=== PATIENT | male | born 1970 | race Caucasian/White ===

== ENCOUNTER 2019-01-25 14:09 | Emergency (ER) | payer OTHER ==
[~2019-01-25] VITALS: Ht 170.2 cm; Wt 79.4 kg
[~2019-01-25 14:09] MED LIST: ALBU90OI INH; AZIT250 PO; Amoxicillin500 MG PO; DEXA2 PO; DOCU100 PO; HYDACE5 PO; IBUP800 PO; PENVK500 PO; PRED20 PO; PROM25 PO; RXPENVK250 PO
[2019-01-25] MEDS ORDERED: CEPH500 PO (15:16)
== END 2019-01-25 15:25 | disposition home or self-care (01) ==
LOC: ER 14:09
DX: L03.115 Cellulitis of right lower limb (principal); B07.0 Plantar wart; Z87.891 Personal history of nicotine dependence
CPT/HCPCS: 99282

== ENCOUNTER → 2019-04-26 | Outpatient (CLI) | payer OTHER ==
[~2019-04-26] MED LIST changes: +CEPH500 PO
[2019-04-28 14:27] LABS: Stool Occult Bld Immuno 1 Negative (NEGATIVE)
== END | disposition home or self-care (01) ==
LOC: LAB 09:12 → LAB SHORT 09:12
PROVIDERS: Nurse Practitioner Family
DX: Z12.11 Encounter for screening for malignant neoplasm of colon (principal)
CPT/HCPCS: G0328

== ENCOUNTER → 2019-05-22 | Outpatient (CLI) | payer OTHER | END | disposition home or self-care (01) | LOC: LAB 16:04 → LAB SHORT 16:04 | DX: L02.611 Cutaneous abscess of right foot (principal) | CPT/HCPCS: 87070; 87075; 87077; 87186; 87205 ==

== ENCOUNTER 2020-12-27 18:55 | Emergency (ER) | payer OTHER ==
[~2020-12-27] VITALS: Ht 172.7 cm; Wt 86.2 kg
[~2020-12-27 18:55] MED LIST changes: +ATOR80 PO; +CARV6.25 PO; +CYCL10; +NAPR500 PO; +Zantac150 MG
== END 2020-12-27 21:08 | disposition home or self-care (01) ==
LOC: ER 18:55
DX: S61.211A Laceration without foreign body of left index finger without damage to nail, initial encounter (principal); S61.217A Laceration without foreign body of left little finger without damage to nail, initial encounter; S61.213A Laceration without foreign body of left middle finger without damage to nail, initial encounter; S61.215A Laceration without foreign body of left ring finger without damage to nail, initial encounter; Z23 Encounter for immunization; Z79.899 Other long term (current) drug therapy; Z87.891 Personal history of nicotine dependence; W45.8XXA Other foreign body or object entering through skin, initial encounter
CPT/HCPCS: 12001; 90471; 90714; 99282-25; A9270

== ENCOUNTER 2022-04-23 12:14 | Emergency (ER) | payer OTHER ==
[~2022-04-23] VITALS: Ht 170.2 cm; Wt 83.9 kg
[2022-04-23 13:09] LABS: BASOPHILS ABSOLUTE AUTO 0.03 K/mm3 (0.00-0.23); BASOPHILS PERCENT AUTO 0 % (0-2); EOSINOPHILS ABSOLUTE AUTO 0.01 K/mm3 (0.00-0.68); EOSINOPHILS PERCENT AUTO 0 % (0-6); Hematocrit 41.8 % (37.0-53.0); Hemoglobin 13.4 g/dL (13.5-17.5); IMMATURE GRAN ABSOLUTE AUTO 0.04 K/mm3 (0.00-0.10); IMMATURE GRAN PERCENT AUTO 0 % (0-1); LYMPHOCYTES ABSOLUTE AUTO 1.22 K/mm3 (0.84-5.20); LYMPHOCYTES PERCENT AUTO 13 % (21-46); MONOCYTES ABSOLUTE AUTO 0.81 K/mm3 (0.16-1.47); MONOCYTES PERCENT AUTO 8 % (4-13); Mean Corpuscular HGB 29.1 pg (26.0-34.0); Mean Corpuscular HGB Conc 32.1 g/dL (31.5-36.5); Mean Corpuscular Volume 91 fL (80-100); Mean Platelet Volume 11.4 fL (9.1-12.4); NEUTROPHILS ABSOLUTE AUTO 7.67 K/mm3 (1.96-9.15); NEUTROPHILS PERCENT AUTO 78 % (41-73); Platelet Count 216 K/mm3 (150-400); RDW Coefficient Variation 14.4 % (11.7-14.2); RDW Standard Deviation 47.9 fL (35.1-46.3); White Blood Cell Count 9.78 K/mm3 (4.00-11.30)
[2022-04-23 13:37] LABS: Albumin, Blood 3.1 g/dL (3.4-5.0); Albumin/Globulin Ratio 0.7 (0.8-1.8); Bilirubin, Total 0.4 mg/dL (0.1-1.0); Bun/Creatinine Ratio 14.3 (12.0-20.0); Creatinine, Blood 0.98 mg/dL (0.60-1.20); Globulin, Blood 4.2 g/dL (2.2-4.0); Potassium, Blood 4.1 mmol/L (3.5-5.5); Total Protein, Blood 7.3 g/dL (6.4-8.2)
== END 2022-04-23 16:47 | disposition home or self-care (01) ==
LOC: ER 12:14
PROVIDERS: Emergency Medicine
DX: S91.301A Unspecified open wound, right foot, initial encounter (principal); X58.XXXA Exposure to other specified factors, initial encounter
CPT/HCPCS: 36415; 73630; 80053; 85025; 99283-25

== ENCOUNTER 2023-06-17 20:58 | Observation (INO) | payer OTHER ==
[~2023-06-17] VITALS: Ht 172.7 cm; Wt 75.0 kg
[2023-06-18 01:49] VITALS: BP 163/97
--- NOTE | 2023-06-18 02:27 | NUR ---
PT ARRIVED TO ROOM 210 FROM ER. PT A/O X4, VSS. LLE IN IMMOBILIZER, LEG PINK/WARM, PEDAL PULSES STRONG, CAP REFILL WNL, PT DENIES N/T. PT MEDICATED FOR PAIN PER EMAR, IVF STARTED, PT ORIENTED TO ROOM/CALL LIGHT AND NPO STATUS.
[2023-06-18 04:10] VITALS: BP 162/99
[2023-06-18 05:30] LABS: BASOPHILS ABSOLUTE AUTO 0.04 K/mm3 (0.00-0.23); BASOPHILS PERCENT AUTO 0 % (0-2); EOSINOPHILS ABSOLUTE AUTO 0.06 K/mm3 (0.00-0.68); EOSINOPHILS PERCENT AUTO 1 % (0-6); Hematocrit 40.1 % (37.0-53.0); IMMATURE GRAN ABSOLUTE AUTO 0.02 K/mm3 (0.00-0.10); IMMATURE GRAN PERCENT AUTO 0 % (0-1); LYMPHOCYTES ABSOLUTE AUTO 1.81 K/mm3 (0.84-5.20); LYMPHOCYTES PERCENT AUTO 19 % (21-46); MONOCYTES PERCENT AUTO 10 % (4-13); Mean Corpuscular HGB Conc 32.4 g/dL (31.5-36.5); Mean Corpuscular Volume 92 fL (80-100); Mean Platelet Volume 11.1 fL (9.1-12.4); NEUTROPHILS ABSOLUTE AUTO 6.71 K/mm3 (1.96-9.15); NEUTROPHILS PERCENT AUTO 70 % (41-73); Platelet Count 206 K/mm3 (150-400); RDW Coefficient Variation 12.9 % (11.7-14.2); RDW Standard Deviation 44.3 fL (35.1-46.3); Red Blood Cell Count 4.34 M/mm3 (4.30-5.90); White Blood Cell Count 9.64 K/mm3 (4.00-11.30)
[2023-06-18 05:56] LABS: International Normalized Ratio 1.01; Prothrombin Time Results 10.6 Sec (9.7-11.5)
[2023-06-18 06:06] LABS: Albumin, Blood 3.1 g/dL (3.4-5.0); Albumin/Globulin Ratio 0.8 (0.8-1.8); Bilirubin, Total 0.9 mg/dL (0.1-1.0); Bun/Creatinine Ratio 20.6 (12.0-20.0); Calcium, Blood 8.2 mg/dL (8.5-10.1); Creatinine, Blood 0.87 mg/dL (0.60-1.20); Globulin, Blood 3.7 g/dL (2.2-4.0); Magnesium, Blood 2.4 mg/dL (1.6-2.4); Potassium, Blood 3.7 mmol/L (3.5-5.5); Total Protein, Blood 6.8 g/dL (6.4-8.2)
[2023-06-18 07:33] VITALS: BP 167/102
--- NOTE | 2023-06-18 08:02 | NUR ---
PT VSS SINCE ARRIVING TO FLOOR, BP REMAINS ELEVATED, PT ASYMPTOMATIC. IMMOBILIZER IN PLACE TO LLE, PULSE AD CAP REFILL WNL, PT DENIES CHANGES IN SENSATION. PAIN MGD PER EMAR W/REP RELIEF. PT NPO SINCE ARRIVING TO FLOOR, IVF CONT. AWAITING SURGICAL PLANNING.
[2023-06-18 11:19] VITALS: BP 186/100
[2023-06-18] MEDS ORDERED: AMLODIPINE-BEN1 EAC4 PO (14:30)
[2023-06-18] MEDS ORDERED: OXAYDO5 M2 PO (14:30)
--- NOTE | 2023-06-18 15:11 | NUR ---
DISCHARGE PT LEFT VIA WHEELCHAIR. ALL BELONGINGS WITH PATIENT. PT PLANS TO FOLLOW UP WITH DR. ARGUELLES ONCE SWELLING GOES DOWN FOR POSSIBLE PROCEDURE. PT AGREEABLE. SCRIPTS SENT TO [facility]. IV REMOVED WNL. TOLERATING DIET WELL. CRUTCHES DROPPED OFF FOR PATIENT. THERAPY WORKED WITH PATIENT ON PROPER USE.
== END 2023-06-18 15:09 | disposition home or self-care (01) ==
LOC: ER 20:58 → SURS 20:59
PROVIDERS: ADMIT Student in an Organized Health Care Education/Training Program
DX: S82.042A Displaced comminuted fracture of left patella, initial encounter for closed fracture (principal); W01.0XXA Fall on same level from slipping, tripping and stumbling without subsequent striking against object, initial encounter; I10 Essential (primary) hypertension; G89.29 Other chronic pain; M54.9 Dorsalgia, unspecified
CPT/HCPCS: 36415; 73564; 80053; 83735; 85025; 85610; 96374; 96375; 97116; 97162; 97530; 99285-25; A9270; G0378; J0360; J3010; J7120

== ENCOUNTER 2023-07-03 08:08 | Inpatient (IN) | payer OTHER ==
[~2023-07-03] VITALS: Ht 170.2 cm; Wt 84.0 kg
[2023-07-03] VITALS (30 sets, daily range): BP systolic 128–184; BP diastolic 83–114
[~2023-07-03 08:08] MED LIST changes: +AMLODIPINE-BEN1 EAC4 PO; +OXAYDO5 M2 PO
--- NOTE | 2023-07-03 14:00 | NUR ---
DR RIBERA CALLED REGARDING PT PAIN, WOULD LIKE ME TO ADMINISTER MORPHINE FOR PAIN CONTROL UNTIL MAX DOSE REACHED, IF STILL UNCONTROLLED I WILL CALL HIM FOR FURTHER ORDERS
--- NOTE | 2023-07-03 14:30 | NUR ---
DR ARGUELLES UPDATED ON PT PAIN, WOULD LIKE TO ADMIT PT OVERNIGHT
--- NOTE | 2023-07-03 17:23 | NUR ---
SHIFT SUMMARY/POST OP NOTE: PATIENT IS A&OX4. SBP IS ELEVATED BUT HAS BEEN GIVEN PO PROPRANOLOL AND COZAAR. PATIENT REPORTS 7/10 PAIN FROM HIS LEFT KNEE. HE HAS BEEN GIVEN HIS EMAR PAIN MEDS AT THIS TIME. HIS LEFT KNEE HAS AN LANI WRAP AND IMMOBILIZER IN PLACE THAT IS C/D/I. DENIES NUMBNESS AND TINGLING IN ALL EXTREMITIES. HE IS ABLE TO MOVE ALL FINGERS AND TOES. PATIENT IS CURRENTLY LAYING IN BED WITH CALL LIGHT IN REACH. THE PLAN IS TO CONTINUE HTN AND PAIN MANAGEMENT WELL WORK WITH PHYSICAL THERAPY IN THE MORNING.
[2023-07-03 17:52] LABS: Hematocrit 38.9 % (37.0-53.0); Hemoglobin 12.7 g/dL (13.5-17.5); Mean Corpuscular HGB 30.3 pg (26.0-34.0); Mean Corpuscular HGB Conc 32.6 g/dL (31.5-36.5); Mean Corpuscular Volume 93 fL (80-100); Platelet Count 344 K/mm3 (150-400); RDW Coefficient Variation 13.7 % (11.7-14.2); RDW Standard Deviation 45.8 fL (35.1-46.3); Red Blood Cell Count 4.19 M/mm3 (4.30-5.90); White Blood Cell Count 12.08 K/mm3 (4.00-11.30)
[2023-07-03 18:14] LABS: BASOPHILS ABSOLUTE MAN 0.12 K/mm3 (0.00-0.23); BASOPHILS PERCENT MAN 1 % (0-2); Bun/Creatinine Ratio 21.8 (12.0-20.0); Calcium, Blood 9.1 mg/dL (8.5-10.1); Creatinine, Blood 1.01 mg/dL (0.60-1.20); EOSINOPHILS PERCENT MAN 0 % (0-6); LYMPHOCYTES ABSOLUTE MAN 0.72 K/mm3 (0.84-5.20); LYMPHOCYTES PERCENT MAN 6 % (21-46); MONOCYTES ABSOLUTE MAN 0.12 K/mm3 (0.16-1.47); MONOCYTES PERCENT MAN 1 % (4-13); NEUTROPHILS ABSOLUTE MAN 11.11 K/mm3 (1.96-9.15); Potassium, Blood 4.6 mmol/L (3.5-5.5); SEG NEUTROPHILS PERCENT MAN 92 % (41-73); TOTAL CELLS COUNTED 100
[2023-07-04 04:14] VITALS: BP 164/102
[2023-07-04 04:54] LABS: BASOPHILS ABSOLUTE AUTO 0.03 K/mm3 (0.00-0.23); BASOPHILS PERCENT AUTO 0 % (0-2); EOSINOPHILS ABSOLUTE AUTO 0.02 K/mm3 (0.00-0.68); EOSINOPHILS PERCENT AUTO 0 % (0-6); Hematocrit 37.5 % (37.0-53.0); Hemoglobin 12.1 g/dL (13.5-17.5); IMMATURE GRAN ABSOLUTE AUTO 0.04 K/mm3 (0.00-0.10); IMMATURE GRAN PERCENT AUTO 0 % (0-1); LYMPHOCYTES ABSOLUTE AUTO 1.67 K/mm3 (0.84-5.20); LYMPHOCYTES PERCENT AUTO 11 % (21-46); MONOCYTES ABSOLUTE AUTO 1.17 K/mm3 (0.16-1.47); MONOCYTES PERCENT AUTO 8 % (4-13); Mean Corpuscular HGB 29.7 pg (26.0-34.0); Mean Corpuscular HGB Conc 32.3 g/dL (31.5-36.5); Mean Corpuscular Volume 92 fL (80-100); Mean Platelet Volume 10.1 fL (9.1-12.4); NEUTROPHILS ABSOLUTE AUTO 11.69 K/mm3 (1.96-9.15); NEUTROPHILS PERCENT AUTO 80 % (41-73); Platelet Count 350 K/mm3 (150-400); RDW Coefficient Variation 13.7 % (11.7-14.2); RDW Standard Deviation 45.4 fL (35.1-46.3); Red Blood Cell Count 4.08 M/mm3 (4.30-5.90); White Blood Cell Count 14.62 K/mm3 (4.00-11.30)
--- NOTE | 2023-07-04 06:17 | NUR ---
HYPERTENSIVE PT HAS BEEN HYPERTENSIVE THIS SHIFT, AND PREVIOUS SHIFT. DR. SMITH NOTIFIED. RECEIVED ORDER TO GIVE 0730 DOSE OF PROPANOLOL EARLY. HE STATES TO GO AHEAD AND GIVE 0730 NOW.
[2023-07-04 07:02] VITALS: BP 158/98
[2023-07-04 14:59] VITALS: BP 144/86
[2023-07-04] MEDS ORDERED: DOCU100 PO (17:38)
[2023-07-04] MEDS ORDERED: CODACE30 PO (17:39)
[2023-07-04] MEDS ORDERED: IBUP600 PO (17:39)
[2023-07-04] MEDS ORDERED: LOSA50 PO (17:40)
[2023-07-04] MEDS ORDERED: PROP10 PO (17:41)
[2023-07-04 17:58] VITALS: BP 144/85
[2023-07-04] MEDS ORDERED: ASPI325 PO (18:36)
--- NOTE | 2023-07-04 18:45 | NUR ---
DISCHARGE PT PROVIDED WITH WRITTEN AND VERBAL DISCHARGE INSTRUCTIONS; PT REPORTED UNDERSTANDING. PAIN MANAGED AT TIME OF DISCHARGE. VSS. PT PROVIDED WITH SCRIPTS FOR PAIN MEDICATION AND OTHER PRESCRIPTIONS FAXED TO PT'S PHARMACY. PT ASSISTED OUT IN W/C AT 1844.
== END 2023-07-04 18:44 | disposition home or self-care (01) | DRG 517 ==
LOC: ORSCMMR 08:08 → ORD 08:08 → ORSCMMR 08:13 → SURS 15:07 → ORD 15:08 → SURS 15:12 → MEDS 15:12 → SURS 15:19
PROVIDERS: ADMIT Orthopaedic Surgery
PROC: 0QSF04Z Reposition Left Patella with Internal Fixation Device, Open Approach (ICD-10-PCS; principal; 2023-07-03 11:30)
DX: S82.032A Displaced transverse fracture of left patella, initial encounter for closed fracture (principal); W01.0XXA Fall on same level from slipping, tripping and stumbling without subsequent striking against object, initial encounter; M54.50 Low back pain, unspecified; I10 Essential (primary) hypertension; G89.29 Other chronic pain; Z79.899 Other long term (current) drug therapy; F15.11 Other stimulant abuse, in remission; Z87.891 Personal history of nicotine dependence; Z98.890 Other specified postprocedural states
CPT/HCPCS: 36415; 80048; 85007; 85025; 85027; 93005; 93010; 97116; 97162; A9270; C1713; C1769; J0690; J1100; J1650; J1885; J2250; J2270; J2405; J2704; J3010; J7120

== ENCOUNTER 2023-07-18 10:06 | Inpatient (IN) | payer OTHER ==
[~2023-07-18] VITALS: Ht 170.2 cm; Wt 79.5 kg
[2023-07-18] VITALS (12 sets, daily range): BP systolic 146–174; BP diastolic 77–98
[~2023-07-18 10:06] MED LIST changes: +ASPI325 PO; +CODACE30 PO; +IBUP600 PO; +LOSA50 PO; +PROP10 PO
[2023-07-18 10:50] LABS: BASOPHILS ABSOLUTE AUTO 0.04 K/mm3 (0.00-0.23); BASOPHILS PERCENT AUTO 0 % (0-2); EOSINOPHILS ABSOLUTE AUTO 0.03 K/mm3 (0.00-0.68); EOSINOPHILS PERCENT AUTO 0 % (0-6); Hematocrit 34.6 % (37.0-53.0); Hemoglobin 11.2 g/dL (13.5-17.5); IMMATURE GRAN ABSOLUTE AUTO 0.11 K/mm3 (0.00-0.10); IMMATURE GRAN PERCENT AUTO 1 % (0-1); LYMPHOCYTES ABSOLUTE AUTO 0.93 K/mm3 (0.84-5.20); LYMPHOCYTES PERCENT AUTO 7 % (21-46); MONOCYTES ABSOLUTE AUTO 1.31 K/mm3 (0.16-1.47); MONOCYTES PERCENT AUTO 9 % (4-13); Mean Corpuscular HGB 28.9 pg (26.0-34.0); Mean Corpuscular HGB Conc 32.4 g/dL (31.5-36.5); Mean Corpuscular Volume 89 fL (80-100); NEUTROPHILS ABSOLUTE AUTO 11.45 K/mm3 (1.96-9.15); NEUTROPHILS PERCENT AUTO 83 % (41-73); Platelet Count 468 K/mm3 (150-400); RDW Coefficient Variation 14.6 % (11.7-14.2); Red Blood Cell Count 3.87 M/mm3 (4.30-5.90); White Blood Cell Count 13.87 K/mm3 (4.00-11.30)
[2023-07-18 11:18] LABS: Albumin, Blood 2.4 g/dL (3.4-5.0); Albumin/Globulin Ratio 0.4 (0.8-1.8); Bilirubin, Total 0.7 mg/dL (0.1-1.0); Bun/Creatinine Ratio 22.8 (12.0-20.0); Calcium, Blood 9.1 mg/dL (8.5-10.1); Creatinine, Blood 0.79 mg/dL (0.60-1.20); Globulin, Blood 5.9 g/dL (2.2-4.0); Potassium, Blood 4.2 mmol/L (3.5-5.5); Total Protein, Blood 8.3 g/dL (6.4-8.2)
--- NOTE | 2023-07-18 17:28 | NUR ---
ARRIVED FROM ED VIA VIDYA WORKMAN, C/O 04/30, MEDICATED W/ FENTANYL 50MCG IV PER EMAR, ICE TO L KNEE, DR. BOLANOS SAW PT, NOW TAKEN TO DAY SURGERY.
--- NOTE | 2023-07-18 17:44 | NUR ---
PT ARRIVES TO PACU FOR PRE-OP FROM RM 210 VIA BED AT 1720. SURGICAL PACK COMPLETE. DR VILLA AT BEDSIDE. AFEBRILE/VSS. PAS SLEEVE TO LLE PLACED. SURGICAL HAT & BP CUFF IN PLACED. NO ACUTE CHANGES AT TIME OF TRANSFER TO OR 2 FOR SURGERY.
[2023-07-19 02:16] VITALS: BP 143/85
[2023-07-19 05:19] LABS: BASOPHILS ABSOLUTE AUTO 0.01 K/mm3 (0.00-0.23); BASOPHILS PERCENT AUTO 0 % (0-2); EOSINOPHILS PERCENT AUTO 0 % (0-6); Hematocrit 31.4 % (37.0-53.0); Hemoglobin 10.3 g/dL (13.5-17.5); IMMATURE GRAN ABSOLUTE AUTO 0.08 K/mm3 (0.00-0.10); IMMATURE GRAN PERCENT AUTO 1 % (0-1); LYMPHOCYTES ABSOLUTE AUTO 0.64 K/mm3 (0.84-5.20); LYMPHOCYTES PERCENT AUTO 5 % (21-46); MONOCYTES ABSOLUTE AUTO 0.91 K/mm3 (0.16-1.47); MONOCYTES PERCENT AUTO 7 % (4-13); Mean Corpuscular HGB 28.9 pg (26.0-34.0); Mean Corpuscular HGB Conc 32.8 g/dL (31.5-36.5); Mean Corpuscular Volume 88 fL (80-100); Mean Platelet Volume 10.2 fL (9.1-12.4); NEUTROPHILS ABSOLUTE AUTO 12.12 K/mm3 (1.96-9.15); NEUTROPHILS PERCENT AUTO 88 % (41-73); Platelet Count 474 K/mm3 (150-400); RDW Coefficient Variation 14.8 % (11.7-14.2); Red Blood Cell Count 3.56 M/mm3 (4.30-5.90); White Blood Cell Count 13.76 K/mm3 (4.00-11.30)
[2023-07-19 05:54] LABS: Bun/Creatinine Ratio 24.6 (12.0-20.0); Calcium, Blood 8.9 mg/dL (8.5-10.1); Creatinine, Blood 0.81 mg/dL (0.60-1.20); Potassium, Blood 4.5 mmol/L (3.5-5.5)
--- NOTE | 2023-07-19 06:22 | NUR ---
SHIFT SUMMARY PT IS HERE FOR AN I&D PERFORMED ON 07/18 AFTER HAVING AN ORIF OF A LEFT PATELLAR FX ON 07/03/23. PT HAS A HEMOVAC IN PLACE W/MINIMAL OUTPUT. PACU REPORT STATED KNEE IS WRAPPED W/ XEROFORM, 4X4'S, AND AN LANI WRAP. PT'S VITAL SIGNS HAVE BEEN STABLE THROUGHOUT THE SHIFT AND THE PT HAS SLEPT FOR THE MAJORITY OF THE SHIFT. NO ACUTE EVENTS OCCURRED OVERNIGHT. BED IS IN LOWEST POSITION, CALL LIGHT IS WITHIN REACH.
[2023-07-19 07:27] VITALS: BP 155/86
--- NOTE | 2023-07-19 10:55 | NUR ---
Upon receiving a referral for spiritual care, I visited the patient. He is sleeping when I entered the but awakens at the sound of his name. He explains about the medical problems he has and the work that efforts made to deal with the infection. He welcomes prayer which I gladly supply. Patient voices appreciation and showed signs of reduced stress. I will continue to remain available to patient and family.
--- NOTE | 2023-07-19 10:59 | NUR ---
Upon receiveing a referral for spiritual care, I visited the patient. Patient tells me about his medical complications and his fears about the mass being "cancer." He is tearful as he talks about the desire to be around for his kids as they grow up. He describes his more recent spiritual connection and how he is in the beginningstages of trying to figure some things out. He asks theological questions to which I bring some fresh insights. He talks about his family and his recent move here from [place]. He shares his worries about the timing of the results from the biopsy and his need to have 3 hernias repaired. I normalize his fears and feelings, reinforce helpful attitudes and practices an provide therapeutic listening and prayer. Patient responded well and showed signs of reduced stress. I will continue to remain available to patient and family.
[2023-07-19 14:22] VITALS: BP 149/77
--- NOTE | 2023-07-19 15:23 | NUR ---
SHIFT SUMMARY: POD 1 LEFT KNEE I&D PATIENT IS A&OX4. VS ARE WNL AND IS ON RA. PAIN IS MANAGED WITH PO PERCOCET AND ONE DOSE OF IV DILAUDID FOR BREAKTHROUGH PAIN AFTER PHYSICAL THERAPY. PATIENTS LEFT KNEE HAS AN LANI WRAP WITH GAUZE THAT IS C/D/I. DENIES NUMBNESS OR TINGLING. CAN MOVE ALL FINGERS AND TOES WHEN ASKED. HE IS TOLERATING PO INTAKE AND IS VOIDING. PATIENT IS A SBA WITH FWW AND GAIT BELT AND IS WEIGHT BEARING TOLERATED ON THE LEFT KNEE. PATIENT IS CURRENTLY IN THE RECLINER CHAIR WITH LEGS ELEVATED AND CALL LIGHT WITHIN REACH. PATIENT CALLS APPROPRIATLEY. THE PLAN IS TO BE NPO AT MIDNIGHT TONIGHT FOR ANOTHER I&D WITH DR. BOLANOS IN THE MORNING TOMORROW AND TO ALSO CONTINUE PAIN MANAGEMENT.
[2023-07-19 20:01] VITALS: BP 162/94
[2023-07-19 20:02] VITALS: BP 157/88
[2023-07-20] VITALS (22 sets, daily range): BP systolic 141–188; BP diastolic 84–108
[2023-07-20 05:19] LABS: Hematocrit 31.3 % (37.0-53.0); Hemoglobin 10.1 g/dL (13.5-17.5); Mean Corpuscular HGB 28.9 pg (26.0-34.0); Mean Corpuscular HGB Conc 32.3 g/dL (31.5-36.5); Mean Corpuscular Volume 90 fL (80-100); Mean Platelet Volume 9.8 fL (9.1-12.4); Platelet Count 502 K/mm3 (150-400); RDW Coefficient Variation 15.2 % (11.7-14.2); RDW Standard Deviation 50.1 fL (35.1-46.3); Red Blood Cell Count 3.49 M/mm3 (4.30-5.90); White Blood Cell Count 11.24 K/mm3 (4.00-11.30)
[2023-07-20 05:58] LABS: Bun/Creatinine Ratio 27.4 (12.0-20.0); Calcium, Blood 8.5 mg/dL (8.5-10.1); Creatinine, Blood 0.88 mg/dL (0.60-1.20); Potassium, Blood 3.8 mmol/L (3.5-5.5)
--- NOTE | 2023-07-20 06:32 | NUR ---
SHIFT SUMMARY PT IS POD#2 FOR A LEFT KNEE I&D S/P AN ORIF OF A PATELLAR FX ON 07/03. HEMOVAC DRAIN IS COMPRESSED WITH MINIMAL OUTPUT. PT COMPLAINED OF PAIN THROUGHOUT THE NIGHT AND LOOSENED HIS BRACE D/T PAIN. PT'S PAIN MANAGED BY EMAR OVERNIGHT. PT HAS BEEN NPO SINCE MIDNIGHT FOR REPEAT I&D PROCEDURE TODAY. BED IS IN LOWEST POSITION, CALL LIGHT IS WITHIN REACH.
--- NOTE | 2023-07-20 08:52 | NUR ---
PATIENT WAS TAKEN TO THE OR.
--- NOTE | 2023-07-20 11:15 | NUR ---
PATIENT ARRIVED FROM PACU TODAY. POD 0 LEFT KNEE I&D PATIENT IS A&OX4. VS ARE WNL AND IS ON RA. PATIENT DENIES PAIN AT THIS TIME. HIS LEFT KNEE HAS AN LANI WRAP WITH IMMOBILIZER IN PLACE THAT IS C/D/I. PEDAL PULSES ARE STRONG AND WARM TO TOUCH. HE IS ABLE TO WIGGLE ALL FINGERS AND TOES WHEN ASKED. PATIENT IS TOLERATING SMALL AMOUNTS OF PO INTAKE. HE IS CURRENTLY LAYING IN BED WATCHING TV WITH CALL LIGHT IN REACH.
--- NOTE | 2023-07-20 16:23 | NUR ---
SHIFT SUMMARY: POD 0 LEFT KNEE I&D (SECOND I&D FOR PATIENT) PATIENT IS DROWSY BUT AWAKENS BY VERBAL STIMULI. SBP IS ELEVATED BUT OTHERWISE VS ARE WNL AND IS ON RA WITH >90% OXYGEN SATS. DR. SIMENTAL WAS NOTIFIED ON PATIENTS ELEVATED SBP AND ALSO REPORTED THE PATIENT STATING "I'M NOT IN THAT MUCH PAIN I JUST KEEP HAVING REALLY WEIRD DREAMS". DR. SIMENTAL WANTS TO CONTINUE MONITORING PATIENTS BP WITH NO NEW ORDERS AT THIS TIME. PATIENTS LEFT KNEE HAS AN LANI WRAP WITH GAUZE THAT ARE C/D/I AND IMMOBILIZER IN PLACE. PATIENT DENIES NUMBNESS OR TINGLING AND CAN MOVE ALL FINGERS AND TOES WHEN ASKED. HE IS TOLERATING PO INTAKE AND IS VOIDING. PATIENT IS CURRENTLY LAYING IN BED WATCHING TV WITH CALL LIGHT IN REACH. PATIENT CALLS APPROPRIATELY.
[2023-07-21 04:58] VITALS: BP 167/100
[2023-07-21 05:43] LABS: Vancomycin, Trough 19.6 ug/mL (5.0-10.0)
[2023-07-21 07:13] VITALS: BP 156/84
--- NOTE | 2023-07-21 07:37 | NUR ---
SHIFT SUMMARY NOC. PT A/O X4. PT LEFT KNEE INCISION IS C/D/I, IMMOBILIZER INPLACE. PT VOIDING AND TOLERATING PO. PT PAIN RELIEVED WITH ORALS. PT IV INFILTRATED, IV STOPPED AND ICE APPLIED. PT REPORTED IMPROVEMENT OF IRRITATION AFTER ICE. PT RESTED WITH EYES CLOSED AND CALL LIGHT IN REACH.
[2023-07-21 15:29] VITALS: BP 165/94
--- NOTE | 2023-07-21 19:07 | NUR ---
SHIFT SUMMARY POD1 L KNEE I&D, A/OX4, VSS, TOLERATING PO, AMBULATES WITH 1-2 ASSIST FWW/GB, WORKED WITH THERAPY TODAY, KNEE IMMOBILIZER IN PLACE, PAIN MANAGED PER EMAR, IV ABX INFUSING ORDERED, PLAN FOR PICC PLACEMENT AND 6 WEEKS ABX. NO ACUTE EVENTS THIS SHIFT, CALL LIGHT IN REACH.
[2023-07-21 19:27] VITALS: BP 167/85
[2023-07-22 04:59] VITALS: BP 159/94
--- NOTE | 2023-07-22 05:17 | NUR ---
SHIFT SUMMARY POD2 I&D OF LEFT KNEE, LANI WRAP APPEARS C/D/I, IMMOBILIZER IN PLACE BUT LOOSENED D/T PAIN. VSS, SOME HTN NOTED. PT DOZED ON AND OFF T/O THE NIGHT, STRUGGLED TO GET SLEEP D/T PAIN. MEDICATED FOR PAIN MULTIPLE TIMES T/O THE NIGHT WITH ORAL AND IV MEDICATION W/MINIMAL IMPROVEMT. K PAD AND ICE UTILIZED T/O THE NIGHT. VOIDING INTO URINAL INDEPENDENTLY, NO BM NOTED. TOLLERATING PO INTAKE W/O N/V. PLAN FOR PT TO WORK WITH PHYSICAL THERAPY TODAY AND HAVE PICC PLACEMENT.
[2023-07-22 05:41] LABS: Vancomycin, Trough 20.1 ug/mL (5.0-10.0)
[2023-07-22 07:07] VITALS: BP 159/88
[2023-07-22 14:15] VITALS: BP 160/91
[2023-07-22 19:17] VITALS: BP 145/94
--- NOTE | 2023-07-22 19:27 | NUR ---
SHIFT SUMMARY PT A&OX4, VSS/RA, LEXY PO, VOIDING/BM, AMB IND W/FWW, UP TO CHAIR FOR MEALS, PAIN MANAGED, IV SL/ABX PER EMAR. REPORT TO VENU ROCHA.
[2023-07-23 03:33] VITALS: BP 159/92
--- NOTE | 2023-07-23 04:14 | NUR ---
SHIFT SUMMARY NO ACUTE CHANGES. PT RESTED WELL T/O SHIFT. LEFT KNEE IN IMMOBILIZER AND ELEVATED ON PILLOWS. PT ABLE TO REPOSITION SELF IN BED INDEP. 1 PERCOCET FOR PAIN MANAGEMENT. IV ABX PER ORDERS. USING URINAL TO VOID. USES CALL LIGHT APPROPRIATELY.
[2023-07-23 05:56] LABS: Vancomycin, Trough 16.9 ug/mL (5.0-10.0)
[2023-07-23 07:15] VITALS: BP 161/84
[2023-07-23 08:55] LABS: BASOPHILS ABSOLUTE AUTO 0.09 K/mm3 (0.00-0.23); BASOPHILS PERCENT AUTO 1 % (0-2); EOSINOPHILS ABSOLUTE AUTO 0.02 K/mm3 (0.00-0.68); EOSINOPHILS PERCENT AUTO 0 % (0-6); Hematocrit 40.7 % (37.0-53.0); Hemoglobin 13.3 g/dL (13.5-17.5); IMMATURE GRAN PERCENT AUTO 1 % (0-1); LYMPHOCYTES PERCENT AUTO 15 % (21-46); MONOCYTES ABSOLUTE AUTO 1.71 K/mm3 (0.16-1.47); MONOCYTES PERCENT AUTO 10 % (4-13); Mean Corpuscular HGB Conc 32.7 g/dL (31.5-36.5); Mean Corpuscular Volume 89 fL (80-100); NEUTROPHILS ABSOLUTE AUTO 12.54 K/mm3 (1.96-9.15); NEUTROPHILS PERCENT AUTO 74 % (41-73); Platelet Count 607 K/mm3 (150-400); RDW Coefficient Variation 14.9 % (11.7-14.2); RDW Standard Deviation 47.8 fL (35.1-46.3); Red Blood Cell Count 4.59 M/mm3 (4.30-5.90); White Blood Cell Count 17.06 K/mm3 (4.00-11.30)
[2023-07-23 09:05] LABS: Bun/Creatinine Ratio 25.5 (12.0-20.0); Calcium, Blood 9.5 mg/dL (8.5-10.1); Creatinine, Blood 0.78 mg/dL (0.60-1.20); Potassium, Blood 4.1 mmol/L (3.5-5.5)
[2023-07-23 14:45] VITALS: BP 146/76
--- NOTE | 2023-07-23 16:42 | NUR ---
SHIFT SUMMARY PT A&OX4, VSS/RA, LEXY PO, VOIDING/BMs, AMB FWW, UP TO CHAIR FOR MEALS, PAIN MANAGED, PICC LINE PLACED TODAY, ABX PER EMAR, DRESSING CHANGED TODAY AND SUPPLIES PREPARED FOR PT TO TAKE WITH AT DC TOMORROW. WILL REPORT TO ONCOMING NOC RN.
[2023-07-23 19:06] VITALS: BP 136/81
--- NOTE | 2023-07-24 04:48 | NUR ---
SHIFT SUMMARY NO ACUTE CHANGES. PT RESTED WELL T/O SHIFT. LEFT KNEE IN IMMOBILIZER AND ELEVATED ON PILLOWS. LANI WRAP UNDERNEATH IMMOBILIZER APPEARS CDI. PT ABLE TO REPOSITION SELF IN BED INDEP. 2 PERCOCET FOR PAIN MANAGEMENT. USING URINAL TO VOID. USES CALL LIGHT APPROPRIATELY. PLAN TO DISCHARGE HOME TODAY WITH HH.
[2023-07-24 07:21] VITALS: BP 129/72
--- NOTE | 2023-07-24 11:52 | NUR ---
Patient is lying in bed and alert. He immediately tells me that he is up for possible d/c today. He asks that I would pray about his return to his life and his need for God. He tells me that he prays everyday and that GOd is the most important thing in his life. I gladly provide a prayer. Patient becomes quite tearful during the prayer. He voices much apprecitation and tells me that the prayer was very encouraging and just wanted he need for today. I will continue to remain available to patient and family.
[2023-07-24] MEDS ORDERED: AMLO5 PO (15:55)
[2023-07-24] MEDS ORDERED: HYDCHL25 PO (15:56)
[2023-07-24] MEDS ORDERED: CUBICIN RF500 M1 IV (15:56)
[2023-07-24] MEDS ORDERED: Percocet 5-3251 EACH PO (15:57)
[2023-07-24] MEDS ORDERED: VISBIOME 112.51 EACH PO (15:57)
[2023-07-24] MEDS ORDERED: RIFA300 PO (15:58)
--- NOTE | 2023-07-24 17:55 | NUR ---
DISCHARGE SUMMARY S/P L KNEE I&D, A/OX4, VSS, TOLERATING PO, PAIN WELL MANAGED, KNEE IMMOBILIZER IN PLACE, PATIENT DISCHARGED WITH HIS PICC LINE IN PLACE FOR HOME INFUSION ABX, GAUZE/LANI WRAP IN PLACE AROUND L KNEE UNDER IMMOBILIZER. DISCUSSED DISCHARGE INSTRUCTIONS INCLUDING HOME CARE, IV INFUSIONS, PICC LINE MANAGEMENT, DRESSING CHANGES, MEDICATIONS, AND FOLLOW UP APPOINTMENTS INCLUDING LAB DRAWS STARTING NEXT WEEK. NO QUESTIONS AT THIS TIME. ESCORTED OUT VIA WC TO PRIVATE AUTO TO GO HOME.
== END 2023-07-24 17:05 | disposition home or self-care (01) | DRG 857 ==
LOC: ER 10:06 → SURS 12:44 → ERHOLD 12:44 → SURS 16:07
PROVIDERS: Orthopaedic Surgery Sports Medicine; Physician Assistant; ADMIT Internal Medicine
PROC: 0SBD0ZZ Excision of Left Knee Joint, Open Approach (ICD-10-PCS; principal; 2023-07-18 14:30)
PROC: 0S9D0ZZ Drainage of Left Knee Joint, Open Approach (ICD-10-PCS; 2023-07-20)
PROC: 02HV33Z Insertion of Infusion Device into Superior Vena Cava, Percutaneous Approach (ICD-10-PCS; 2023-07-23)
DX: T81.49XA Infection following a procedure, other surgical site, initial encounter (principal); I96 Gangrene, not elsewhere classified; M00.062 Staphylococcal arthritis, left knee; T81.40XA Infection following a procedure, unspecified, initial encounter; Y83.8 Other surgical procedures as the cause of abnormal reaction of the patient, or of later complication, without mention of misadventure at the time of the procedure; B95.62 Methicillin resistant Staphylococcus aureus infection as the cause of diseases classified elsewhere; G89.29 Other chronic pain; M54.50 Low back pain, unspecified; I10 Essential (primary) hypertension; S82.002D Unspecified fracture of left patella, subsequent encounter for closed fracture with routine healing; W19.XXXD Unspecified fall, subsequent encounter; Z79.82 Long term (current) use of aspirin; Z79.1 Long term (current) use of non-steroidal anti-inflammatories (NSAID); Z96.643 Presence of artificial hip joint, bilateral; Z87.891 Personal history of nicotine dependence
CPT/HCPCS: 36415; 36573; 71045; 80048; 80053; 80202; 82565; 83605; 85025; 85027; 85651; 86140; 87040; 87070; 87071; 87075; 87077; 87147; 87186; 87205; 93005; 93010; 94760; 96374-59; 97116; 97161; 97165; 97530; 97535; 99284-25; A9270; C1713; C1751; J0690; J0878; J1100; J1170; J1650; J1885; J2405; J2704; J3010; J3370; J7050; J7120

== ENCOUNTER 2023-08-01 00:59 | Day surgery (SDC) | payer OTHER ==
[~2023-08-01 00:59] MED LIST changes: +AMLO5 PO; +CUBICIN RF500 M1 IV; +HYDCHL25 PO; +Percocet 5-3251 EACH PO; +RIFA300 PO; +VISBIOME 112.51 EACH PO
[2023-08-01 16:30] VITALS: BP 121/72
[2023-08-01 17:00] LABS: BASOPHILS ABSOLUTE AUTO 0.05 K/mm3 (0.00-0.23); BASOPHILS PERCENT AUTO 1 % (0-2); EOSINOPHILS PERCENT AUTO 1 % (0-6); Hematocrit 29.2 % (37.0-53.0); Hemoglobin 9.4 g/dL (13.5-17.5); IMMATURE GRAN ABSOLUTE AUTO 0.05 K/mm3 (0.00-0.10); IMMATURE GRAN PERCENT AUTO 1 % (0-1); LYMPHOCYTES ABSOLUTE AUTO 2.04 K/mm3 (0.84-5.20); LYMPHOCYTES PERCENT AUTO 20 % (21-46); MONOCYTES PERCENT AUTO 9 % (4-13); Mean Corpuscular HGB 28.3 pg (26.0-34.0); Mean Corpuscular HGB Conc 32.2 g/dL (31.5-36.5); Mean Corpuscular Volume 88 fL (80-100); NEUTROPHILS ABSOLUTE AUTO 7.26 K/mm3 (1.96-9.15); NEUTROPHILS PERCENT AUTO 70 % (41-73); Platelet Count 648 K/mm3 (150-400); RDW Coefficient Variation 14.6 % (11.7-14.2); RDW Standard Deviation 46.9 fL (35.1-46.3); Red Blood Cell Count 3.32 M/mm3 (4.30-5.90)
[2023-08-01 17:21] LABS: Albumin, Blood 2.6 g/dL (3.4-5.0); Albumin/Globulin Ratio 0.5 (0.8-1.8); Bilirubin, Total 0.2 mg/dL (0.1-1.0); Bun/Creatinine Ratio 24.8 (12.0-20.0); Creatinine, Blood 0.89 mg/dL (0.60-1.20); Globulin, Blood 5.7 g/dL (2.2-4.0); Potassium, Blood 3.6 mmol/L (3.5-5.5); Total Protein, Blood 8.3 g/dL (6.4-8.2)
== END 2023-08-01 16:40 | disposition home or self-care (01) ==
LOC: ATC 00:59
PROVIDERS: Internal Medicine
DX: T84.54XA Infection and inflammatory reaction due to internal left knee prosthesis, initial encounter (principal); M00.062 Staphylococcal arthritis, left knee; B95.62 Methicillin resistant Staphylococcus aureus infection as the cause of diseases classified elsewhere; Y79.3 Surgical instruments, materials and orthopedic devices (including sutures) associated with adverse incidents; Z88.8 Allergy status to other drugs, medicaments and biological substances; Z79.82 Long term (current) use of aspirin; Z79.899 Other long term (current) drug therapy
CPT/HCPCS: 36592; 80053; 82550; 85025

== ENCOUNTER 2023-08-13 02:27 | Day surgery (SDC) | payer OTHER ==
[2023-08-13 16:00] VITALS: BP 183/100
[2023-08-13 16:48] LABS: BASOPHILS ABSOLUTE AUTO 0.06 K/mm3 (0.00-0.23); BASOPHILS PERCENT AUTO 1 % (0-2); EOSINOPHILS ABSOLUTE AUTO 0.13 K/mm3 (0.00-0.68); EOSINOPHILS PERCENT AUTO 2 % (0-6); Hematocrit 33.1 % (37.0-53.0); Hemoglobin 10.7 g/dL (13.5-17.5); IMMATURE GRAN ABSOLUTE AUTO 0.03 K/mm3 (0.00-0.10); IMMATURE GRAN PERCENT AUTO 0 % (0-1); LYMPHOCYTES ABSOLUTE AUTO 2.15 K/mm3 (0.84-5.20); LYMPHOCYTES PERCENT AUTO 25 % (21-46); MONOCYTES ABSOLUTE AUTO 0.86 K/mm3 (0.16-1.47); MONOCYTES PERCENT AUTO 10 % (4-13); Mean Corpuscular HGB 28.5 pg (26.0-34.0); Mean Corpuscular HGB Conc 32.3 g/dL (31.5-36.5); Mean Corpuscular Volume 88 fL (80-100); Mean Platelet Volume 10.9 fL (9.1-12.4); NEUTROPHILS ABSOLUTE AUTO 5.32 K/mm3 (1.96-9.15); NEUTROPHILS PERCENT AUTO 62 % (41-73); Platelet Count 341 K/mm3 (150-400); RDW Coefficient Variation 14.9 % (11.7-14.2); RDW Standard Deviation 47.7 fL (35.1-46.3); Red Blood Cell Count 3.75 M/mm3 (4.30-5.90); White Blood Cell Count 8.55 K/mm3 (4.00-11.30)
[2023-08-13 17:18] LABS: Albumin, Blood 3.3 g/dL (3.4-5.0); Albumin/Globulin Ratio 0.6 (0.8-1.8); Bilirubin, Total 0.4 mg/dL (0.1-1.0); Bun/Creatinine Ratio 26.2 (12.0-20.0); Calcium, Blood 9.4 mg/dL (8.5-10.1); Creatinine, Blood 0.99 mg/dL (0.60-1.20); Globulin, Blood 5.6 g/dL (2.2-4.0); Potassium, Blood 3.7 mmol/L (3.5-5.5); Total Protein, Blood 8.9 g/dL (6.4-8.2)
== END 2023-08-13 16:00 | disposition home or self-care (01) ==
LOC: ATC 02:27
PROVIDERS: Family Medicine
DX: M01.X62 Direct infection of left knee in infectious and parasitic diseases classified elsewhere (principal); Z79.82 Long term (current) use of aspirin; Z79.899 Other long term (current) drug therapy
CPT/HCPCS: 36592; 80053; 82550; 85025

== ENCOUNTER 2023-08-19 08:00 | Day surgery (SDC) | payer OTHER ==
[2023-08-19 13:25] VITALS: BP 158/105
[2023-08-19 14:17] LABS: BASOPHILS ABSOLUTE AUTO 0.06 K/mm3 (0.00-0.23); BASOPHILS PERCENT AUTO 1 % (0-2); EOSINOPHILS ABSOLUTE AUTO 0.09 K/mm3 (0.00-0.68); EOSINOPHILS PERCENT AUTO 1 % (0-6); Hematocrit 32.9 % (37.0-53.0); Hemoglobin 10.7 g/dL (13.5-17.5); IMMATURE GRAN ABSOLUTE AUTO 0.03 K/mm3 (0.00-0.10); IMMATURE GRAN PERCENT AUTO 0 % (0-1); LYMPHOCYTES ABSOLUTE AUTO 2.23 K/mm3 (0.84-5.20); LYMPHOCYTES PERCENT AUTO 28 % (21-46); MONOCYTES ABSOLUTE AUTO 0.54 K/mm3 (0.16-1.47); MONOCYTES PERCENT AUTO 7 % (4-13); Mean Corpuscular HGB 28.8 pg (26.0-34.0); Mean Corpuscular HGB Conc 32.5 g/dL (31.5-36.5); Mean Corpuscular Volume 88 fL (80-100); Mean Platelet Volume 10.8 fL (9.1-12.4); NEUTROPHILS ABSOLUTE AUTO 5.13 K/mm3 (1.96-9.15); NEUTROPHILS PERCENT AUTO 64 % (41-73); Platelet Count 252 K/mm3 (150-400); RDW Standard Deviation 48.4 fL (35.1-46.3); Red Blood Cell Count 3.72 M/mm3 (4.30-5.90); White Blood Cell Count 8.08 K/mm3 (4.00-11.30)
[2023-08-19 14:41] LABS: Albumin, Blood 3.1 g/dL (3.4-5.0); Albumin/Globulin Ratio 0.6 (0.8-1.8); Bilirubin, Total 0.7 mg/dL (0.1-1.0); Bun/Creatinine Ratio 21.2 (12.0-20.0); Calcium, Blood 9.1 mg/dL (8.5-10.1); Creatinine, Blood 0.99 mg/dL (0.60-1.20); Globulin, Blood 5.2 g/dL (2.2-4.0); Potassium, Blood 3.7 mmol/L (3.5-5.5); Total Protein, Blood 8.3 g/dL (6.4-8.2)
--- NOTE | 2023-08-19 16:14 | NUR ---
LABS RESULTS FROM TODAY FAXED TO [facility].
== END 2023-08-19 23:59 | disposition home or self-care (01) ==
LOC: ATC 08:00
PROVIDERS: Internal Medicine
DX: M01.X62 Direct infection of left knee in infectious and parasitic diseases classified elsewhere (principal); Z79.82 Long term (current) use of aspirin
CPT/HCPCS: 36592; 80053; 82550; 85025

== ENCOUNTER 2023-08-26 01:52 | Day surgery (SDC) | payer OTHER ==
[2023-08-26 10:46] VITALS: BP 140/120
[2023-08-26 11:33] LABS: BASOPHILS ABSOLUTE AUTO 0.04 K/mm3 (0.00-0.23); BASOPHILS PERCENT AUTO 1 % (0-2); EOSINOPHILS ABSOLUTE AUTO 0.13 K/mm3 (0.00-0.68); EOSINOPHILS PERCENT AUTO 2 % (0-6); Hematocrit 34.7 % (37.0-53.0); IMMATURE GRAN ABSOLUTE AUTO 0.02 K/mm3 (0.00-0.10); IMMATURE GRAN PERCENT AUTO 0 % (0-1); LYMPHOCYTES ABSOLUTE AUTO 1.94 K/mm3 (0.84-5.20); LYMPHOCYTES PERCENT AUTO 29 % (21-46); MONOCYTES ABSOLUTE AUTO 0.59 K/mm3 (0.16-1.47); MONOCYTES PERCENT AUTO 9 % (4-13); Mean Corpuscular HGB 28.1 pg (26.0-34.0); Mean Corpuscular HGB Conc 31.7 g/dL (31.5-36.5); Mean Corpuscular Volume 89 fL (80-100); Mean Platelet Volume 11.1 fL (9.1-12.4); NEUTROPHILS ABSOLUTE AUTO 3.99 K/mm3 (1.96-9.15); NEUTROPHILS PERCENT AUTO 60 % (41-73); Platelet Count 239 K/mm3 (150-400); RDW Coefficient Variation 15.6 % (11.7-14.2); RDW Standard Deviation 49.9 fL (35.1-46.3); Red Blood Cell Count 3.92 M/mm3 (4.30-5.90); White Blood Cell Count 6.71 K/mm3 (4.00-11.30)
[2023-08-26 12:07] LABS: Albumin, Blood 3.2 g/dL (3.4-5.0); Albumin/Globulin Ratio 0.7 (0.8-1.8); Bilirubin, Total 0.4 mg/dL (0.1-1.0); Bun/Creatinine Ratio 20.3 (12.0-20.0); Calcium, Blood 8.9 mg/dL (8.5-10.1); Creatinine, Blood 0.89 mg/dL (0.60-1.20); Globulin, Blood 4.7 g/dL (2.2-4.0); Potassium, Blood 3.9 mmol/L (3.5-5.5); Total Protein, Blood 7.9 g/dL (6.4-8.2)
--- NOTE | 2023-08-26 12:33 | NUR ---
LAB RESULTS FAXED TO [facility]
== END 2023-08-26 11:01 | disposition home or self-care (01) ==
LOC: ATC 01:52
PROVIDERS: Internal Medicine
DX: M01.X62 Direct infection of left knee in infectious and parasitic diseases classified elsewhere (principal)
CPT/HCPCS: 36592; 80053; 85025

== ENCOUNTER 2023-09-05 00:48 | Day surgery (SDC) | payer OTHER | END 2023-09-05 14:43 | disposition home or self-care (01) | LOC: ATC 00:48 | DX: Z45.2 Encounter for adjustment and management of vascular access device (principal) | CPT/HCPCS: 99211 ==

== ENCOUNTER 2023-10-29 11:04 | Day surgery (SDC) | payer OTHER ==
[~2023-10-29 11:04] MED LIST changes: +Bupivacaine 0.5% HCl 5 MG/ML 30MLVIAL EPI ONE; +FentaNYL Citrate 50 MCG/ML 2 ML Injection IV ONE; +Midazolam HCl 1MG / ML 2ML Vial IV ONE; +Rocuronium Bromide 10 MG/ML 5ML Injection IV ONE
[2023-10-29] MEDS ORDERED: CeFAZolin Sodium 2,000 MG VIAL ONE (11:14)
[2023-10-29] MEDS ORDERED: NS 0 ML IV ONE (11:14)
[2023-10-29 11:27] VITALS: BP 186/97
--- NOTE | 2023-10-29 11:44 | NUR ---
10/29/23 1144 Jacquelyn Osorio WHILE ASSESSING PT, RN NOTICED BAND AIDS ON LEFT KNEE. PT STATED THAT HE HAD KNEE SURGERY IN MAY. PT STATED THAT HE HAD A FOLLOW UP APPOINTMENT WITH DR ARGUELLES YESTERDAY. PT STATED THAT DOCTOR BLANE WAS WORRIED IT WAS INFECTED. SITE ASSESSED; LEFT KNEE SWOLLEN, QUARTER SIZED OPEN WOUND, RED. DR AVILA NOTIFIED AND ASSESSED PT. CASE CANCELLED BY DR AVILA DUE TO INCREASED RISK FOR INFECTION. PT'S FAMILY NOTIFIED THAT HE WILL NEED A RIDE HOME. PT WALKED TO THE LOBBY. PT VOICED UNDERSTANDING.
== END 2023-10-29 11:44 | disposition home or self-care (01) ==
LOC: ORSCSDS 11:04
DX: M18.12 Unilateral primary osteoarthritis of first carpometacarpal joint, left hand (principal); Z53.9 Procedure and treatment not carried out, unspecified reason
CPT/HCPCS: J0690; J2250; J3010

== ENCOUNTER 2024-01-21 18:07 | Inpatient (IN) | payer OTHER ==
[~2024-01-21] VITALS: Ht 170.2 cm; Wt 81.5 kg
[~2024-01-21 18:07] MED LIST changes: -Bupivacaine 0.5% HCl 5 MG/ML 30MLVIAL EPI ONE; -FentaNYL Citrate 50 MCG/ML 2 ML Injection IV ONE; -Midazolam HCl 1MG / ML 2ML Vial IV ONE; -Rocuronium Bromide 10 MG/ML 5ML Injection IV ONE
[2024-01-21 18:56] LABS: BASOPHILS ABSOLUTE AUTO 0.03 K/mm3 (0.00-0.23); BASOPHILS PERCENT AUTO 0 % (0-2); EOSINOPHILS ABSOLUTE AUTO 0.05 K/mm3 (0.00-0.68); EOSINOPHILS PERCENT AUTO 1 % (0-6); Hematocrit 39.2 % (37.0-53.0); Hemoglobin 12.3 g/dL (13.5-17.5); IMMATURE GRAN ABSOLUTE AUTO 0.01 K/mm3 (0.00-0.10); IMMATURE GRAN PERCENT AUTO 0 % (0-1); LYMPHOCYTES ABSOLUTE AUTO 1.61 K/mm3 (0.84-5.20); LYMPHOCYTES PERCENT AUTO 23 % (21-46); MONOCYTES ABSOLUTE AUTO 0.62 K/mm3 (0.16-1.47); MONOCYTES PERCENT AUTO 9 % (4-13); Mean Corpuscular HGB 26.7 pg (26.0-34.0); Mean Corpuscular HGB Conc 31.4 g/dL (31.5-36.5); Mean Corpuscular Volume 85 fL (80-100); Mean Platelet Volume 11.3 fL (9.1-12.4); NEUTROPHILS ABSOLUTE AUTO 4.71 K/mm3 (1.96-9.15); NEUTROPHILS PERCENT AUTO 67 % (41-73); Platelet Count 263 K/mm3 (150-400); RDW Coefficient Variation 16.4 % (11.7-14.2); RDW Standard Deviation 50.7 fL (35.1-46.3); White Blood Cell Count 7.03 K/mm3 (4.00-11.30)
[2024-01-21 19:20] LABS: Albumin, Blood 3.5 g/dL (3.4-5.0); Albumin/Globulin Ratio 0.8 (0.8-1.8); Bilirubin, Total 0.5 mg/dL (0.1-1.0); Bun/Creatinine Ratio 15.1 (12.0-20.0); Calcium, Blood 8.6 mg/dL (8.5-10.1); Creatinine, Blood 1.19 mg/dL (0.60-1.20); Globulin, Blood 4.4 g/dL (2.2-4.0); Potassium, Blood 4.2 mmol/L (3.5-5.5); Total Protein, Blood 7.9 g/dL (6.4-8.2)
[2024-01-21] MEDS ORDERED: Ondansetron HCl 2 MG / ML 2ML Vial IV PRN (21:05)
[2024-01-21] MEDS ORDERED: OxyCODONE HCL 5 MG TAB PO PRN (21:05)
[2024-01-21] MEDS ORDERED: Acetaminophen 325 MG TABLET PO PRN (21:10)
[2024-01-21] MEDS ORDERED: Ketorolac Tromethamine 15mg Vial IV PRN (21:20)
[2024-01-21] MEDS ORDERED: Lactated Ringer's 1,000 ML IV SCH (22:00)
[2024-01-21 22:50] LABS: Anti-Xa UFH, PHA Monitoring <0.10 IU/mL; Prothrombin Time Results 10.7 Sec (9.7-11.5)
[2024-01-21 22:53] VITALS: BP 173/102
[2024-01-21] MEDS ORDERED: Heparin Sodium,Porcine/0.5 NS 500 ML IV SCH (23:05)
[2024-01-21] MEDS ORDERED: Heparin Sodium 5000 Units/ML 1ML MDV IV ONE (23:05)
--- NOTE | 2024-01-21 23:11 | NUR ---
PT ARRIVED TO ROOM 209 FROM ER. PT A/O X4, DENIES DIZZINESS. LEFT KNEE RED/SWOLLEN W/SCABS PRESENT. PT REP CLEAR FOUL SMELLING DRNG; NO DRNG NOTED AT THIS TIME. LLE W/1+ EDEMA, PT DENIES N/T, STRING PEDAL PULSE. PT REP LIMITED ROM W/BENDING KNEE, REP PAIN INC W/MVMT. PT ORIENTED TO ROOM/CALL LIGHT AND PLAN FOR NPO AFTER MIDNIGHT FOR SURGERY PLANNING.
[2024-01-22] VITALS (13 sets, daily range): BP systolic 122–174; BP diastolic 74–101
--- NOTE | 2024-01-22 00:34 | NUR ---
REPORT GIVEN TO MADISON Zimmerman RN
--- NOTE | 2024-01-22 05:41 | NUR ---
SUMMARY- PT HAD NO ISSUES THIS SHIFT. PT HAS REMAINED NPO. PT HAS BEEN RESTING QUIETLY THROUGHOUT SHIFT. THIS AM PT DENIES PAIN AND IN NO DISTRESS. CALL LIGHT IN REACH.
[2024-01-22 06:31] LABS: BASOPHILS ABSOLUTE AUTO 0.04 K/mm3 (0.00-0.23); BASOPHILS PERCENT AUTO 1 % (0-2); EOSINOPHILS PERCENT AUTO 2 % (0-6); Hematocrit 37.7 % (37.0-53.0); Hemoglobin 11.8 g/dL (13.5-17.5); IMMATURE GRAN ABSOLUTE AUTO 0.02 K/mm3 (0.00-0.10); IMMATURE GRAN PERCENT AUTO 0 % (0-1); LYMPHOCYTES ABSOLUTE AUTO 2.25 K/mm3 (0.84-5.20); LYMPHOCYTES PERCENT AUTO 38 % (21-46); MONOCYTES PERCENT AUTO 10 % (4-13); Mean Corpuscular HGB 27.3 pg (26.0-34.0); Mean Corpuscular HGB Conc 31.3 g/dL (31.5-36.5); Mean Corpuscular Volume 87 fL (80-100); Mean Platelet Volume 10.9 fL (9.1-12.4); NEUTROPHILS ABSOLUTE AUTO 2.99 K/mm3 (1.96-9.15); NEUTROPHILS PERCENT AUTO 50 % (41-73); Platelet Count 227 K/mm3 (150-400); RDW Coefficient Variation 16.5 % (11.7-14.2); RDW Standard Deviation 52.7 fL (35.1-46.3); Red Blood Cell Count 4.33 M/mm3 (4.30-5.90)
[2024-01-22] MEDS ORDERED: Dose Adjust by Pharmacy XX STA (06:56)
[2024-01-22 07:40] LABS: Albumin/Globulin Ratio 0.8 (0.8-1.8); Bilirubin, Total 0.8 mg/dL (0.1-1.0); Bun/Creatinine Ratio 16.3 (12.0-20.0); Calcium, Blood 8.5 mg/dL (8.5-10.1); Creatinine, Blood 1.04 mg/dL (0.60-1.20); Globulin, Blood 3.9 g/dL (2.2-4.0); Potassium, Blood 4.1 mmol/L (3.5-5.5); Total Protein, Blood 6.9 g/dL (6.4-8.2)
[2024-01-22] MEDS ORDERED: Lactobacil 2-S.Thermo-Bifido 1 1 Cap PO SCH (09:00)
[2024-01-22] MEDS ORDERED: AmLODIPine Besylate 5 MG Tab PO SCH (09:00)
[2024-01-22] MEDS ORDERED: HydroCHLOROthiazide 25 mg Tab PO SCH (09:00)
[2024-01-22] MEDS ORDERED: Docusate Sodium 100 MG Cap PO SCH (09:00)
--- NOTE | 2024-01-22 10:43 | NUR ---
HEPARIN GTT STOPPED AT [address] BOLANOS VERBAL ORDER. PHARMACY NOTIFIED.
--- NOTE | 2024-01-22 14:25 | NUR ---
Pt. is awake in bed and welcomes my visit. Pt. is pleasant but is a little unsettled because of the delay in his surgery. Listen with empathy and seek to normaalize the Pt. experience. Faciliatte a short life review. Pt. displayed evidence of being engaged and aware, but mostly hungry. Considered matters of linda and belief. Prayed with Pt. Pt. verbalized gratitude for the spiritual care visit and welcomed this chapalin to return.
--- NOTE | 2024-01-22 16:16 | NUR ---
SHIFT SUMMARY NO ACUTE CHANGES TODAY. HAS BEEN NPO ALL DAY AND HEPARIN GTT STOPPED THIS AM. PT WAITING TO GO TO OR STILL THIS EVENING. 1 ROXICODONE FOR PAIN MANAGEMENT. INDEP IN ROOM. IVF INFUSING PER ORDERS. USES CALL LIGHT APPROPRIATELY.
[2024-01-22] MEDS ORDERED: Lidocaine HCl 2% 20 ML MDV ONE (20:04)
[2024-01-22] MEDS ORDERED: propofoL 20 ML IV ONE ×2 (20:04→20:05)
[2024-01-22] MEDS ORDERED: FentaNYL Citrate 50 MCG/ML 2 ML Injection ONE (20:04)
[2024-01-22] MEDS ORDERED: Bupivacaine 0.5% HCl 5 MG/ML 30MLVIAL ONE (20:05)
[2024-01-22] MEDS ORDERED: CeFAZolin Sodium 2,000 MG VIAL ONE (20:05)
[2024-01-22] MEDS ORDERED: Dexamethasone Sod Phos 10 MG/ML 1ML VIAL ONE (20:51)
--- NOTE | 2024-01-22 20:54 | NUR ---
PT TAKEN TO OR AT APPROX 2039
[2024-01-22] MEDS ORDERED: Ondansetron HCl 2 MG / ML 2ML Vial ONE (21:10)
[2024-01-22] MEDS ORDERED: Vancomycin HCl 1000 MG ADDvantage ONE (21:19)
[2024-01-22] MEDS ORDERED: HYDROmorphone HCl/Pf 1MG SYR IV PRN (21:45)
[2024-01-22] MEDS ORDERED: Meperidine HCl 50 MG/ML 1ML Injection IV PRN (21:45)
[2024-01-22] MEDS ORDERED: Ketorolac Tromethamine 30mg Vial IV PRN (21:45)
[2024-01-22] MEDS ORDERED: Morphine Sulfate 4 MG/1 ML Injection IV PRN (21:45)
[2024-01-22] MEDS ORDERED: FentaNYL Citrate 50 MCG/ML 2 ML Injection IV PRN ×2 (21:45)
[2024-01-22] MEDS ORDERED: HydrALAZINE HCl 20 MG / ML 1ML Vial IV PRN (21:50)
[2024-01-22] MEDS ORDERED: Labetalol HCL 5 MG/ML 4ML Injection (Single Dose) IV PRN (21:50)
[2024-01-22] MEDS ORDERED: Ondansetron HCl 2 MG / ML 2ML Vial IV PRN (21:50)
[2024-01-22] MEDS ORDERED: ePHEDrine Sulfate 50 MG/ML 1ML Injection IV PRN (21:50)
[2024-01-22] MEDS ORDERED: Albuterol 2.5 MG/3 ML VIAL INH PRN (21:55)
[2024-01-22] MEDS ORDERED: Atropine Sulfate 0.1 MG/ML 10ML SYR IV PRN (21:55)
[2024-01-22] MEDS ORDERED: NS 250 ML IV PRN (22:10)
--- NOTE | 2024-01-22 23:01 | NUR ---
ARRIVAL TO UNIT PT BACK FROM PACU AT APPROX 2240. PT FULLY AWAKE AND ALERT. DENIES ANY N/V. ABLE TO TOLERATE JELLO AND WATER. IMMOBILIZER TO LLE. LANI UNDER IS C/D/I. PT ABLE TO WIGGLE TOES. PULSES STRONG, CAP REFILL WNL. HEPARIN GTT TO START AT 0000. VSS. NO OTHER CONCERNS AT THIS TIME, CALL LIGHT WITHIN REACH
--- NOTE | 2024-01-23 00:10 | NUR ---
HEPARIN HEPARIN STARTED AT APPROX 0000. TALKED WITH PHARMACY ABOUT STARTING DOSAGE FOR HEPARIN. STARTING AT 12U/KG. STARTING 2HRS POST OP PER DR BOLANOS.
[2024-01-23 00:52] VITALS: BP 154/92
[2024-01-23] MEDS ORDERED: FentaNYL Citrate 50 MCG/ML 2 ML Injection IV PRN (01:35)
[2024-01-23] MEDS ORDERED: OxyCODONE HCL 5 MG TAB PO PRN (01:37)
[2024-01-23] MEDS ORDERED: CeFAZolin Sodium 2,000 MG in NS 100 ML IV SCH (02:00)
[2024-01-23 02:08] VITALS: BP 155/90
--- NOTE | 2024-01-23 04:49 | NUR ---
SHIFT SUMMARY POD 1 L KNEE I&D PT RESTLESS DURING THE NIGHT. PAIN WAS NOT MANAGED POST OP BUT UNDER CONTROL AT THIS TIME. PT TOLERATING PO INTAKE, VOIDING. PT HAS IMMOBILIZER ON LLE, LANI WRAP UNDER BOTH ARE C/D/I. PT HAS NOT BEEN OOB, BUT IS WBAT. PT ABLE TO WIGGLE TOES, PULSES STRONG. VSS. NO OTHER CONCERNS AT THIS TIME, CALL LIGHT WITHIN REACH
[2024-01-23 05:04] VITALS: BP 151/94
[2024-01-23 06:02] LABS: BASOPHILS ABSOLUTE AUTO 0.01 K/mm3 (0.00-0.23); BASOPHILS PERCENT AUTO 0 % (0-2); EOSINOPHILS PERCENT AUTO 0 % (0-6); Hematocrit 42.2 % (37.0-53.0); Hemoglobin 13.2 g/dL (13.5-17.5); IMMATURE GRAN ABSOLUTE AUTO 0.01 K/mm3 (0.00-0.10); IMMATURE GRAN PERCENT AUTO 0 % (0-1); LYMPHOCYTES ABSOLUTE AUTO 0.55 K/mm3 (0.84-5.20); LYMPHOCYTES PERCENT AUTO 9 % (21-46); MONOCYTES ABSOLUTE AUTO 0.11 K/mm3 (0.16-1.47); MONOCYTES PERCENT AUTO 2 % (4-13); Mean Corpuscular HGB 26.6 pg (26.0-34.0); Mean Corpuscular HGB Conc 31.3 g/dL (31.5-36.5); Mean Corpuscular Volume 85 fL (80-100); Mean Platelet Volume 10.7 fL (9.1-12.4); NEUTROPHILS ABSOLUTE AUTO 5.24 K/mm3 (1.96-9.15); NEUTROPHILS PERCENT AUTO 88 % (41-73); Platelet Count 254 K/mm3 (150-400); RDW Coefficient Variation 16.2 % (11.7-14.2); RDW Standard Deviation 50.4 fL (35.1-46.3); Red Blood Cell Count 4.97 M/mm3 (4.30-5.90); White Blood Cell Count 5.92 K/mm3 (4.00-11.30)
[2024-01-23] MEDS ORDERED: Dose Adjust by Pharmacy XX STA ×3 (06:16→20:29)
[2024-01-23 06:39] LABS: Albumin, Blood 3.3 g/dL (3.4-5.0); Anion Gap 8 mmol/L (3-11); Blood Urea Nitrogen 13 mg/dL (8-24); Bun/Creatinine Ratio 12.5 (12.0-20.0); CO2, Blood 28 mmol/L (21-32); Calcium, Blood 8.7 mg/dL (8.5-10.1); Chloride, Blood 107 mmol/L (98-108); Creatinine, Blood 1.04 mg/dL (0.60-1.20); Glomerular Filtration Rate 85 (60-); Glucose, Blood 124 mg/dL (70-99); Phosphorus, Blood 3.1 mg/dL (2.5-4.9); Potassium, Blood 4.9 mmol/L (3.5-5.5); Sodium, Blood 138 mmol/L (136-145)
[2024-01-23 07:18] VITALS: BP 164/102
[2024-01-23 14:08] VITALS: BP 147/83
--- NOTE | 2024-01-23 14:58 | NUR ---
SUMMARY S/P I&D TO L KNEE. LANI WRAP CDI + IMMOBILIZER IN PLACE. PT WORKED WITH THERAPY WHO RECOMMENDS OUTPT. PT INDEP IN ROOM. 2 ROXICODONE FOR PAIN CONTROL. LEXY REG DIET. IV ABX PER ORDERS. HEPARIN GTT INFUSING AND MANAGED PER PHARMACY. VSS. PT USES CALL LIGHT APPROPRIATELY.
[2024-01-23 20:07] VITALS: BP 162/95
[2024-01-24 01:44] VITALS: BP 141/89
[2024-01-24 02:51] LABS: BASOPHILS ABSOLUTE AUTO 0.04 K/mm3 (0.00-0.23); BASOPHILS PERCENT AUTO 0 % (0-2); EOSINOPHILS ABSOLUTE AUTO 0.04 K/mm3 (0.00-0.68); EOSINOPHILS PERCENT AUTO 0 % (0-6); Hematocrit 38.5 % (37.0-53.0); Hemoglobin 12.3 g/dL (13.5-17.5); IMMATURE GRAN ABSOLUTE AUTO 0.05 K/mm3 (0.00-0.10); IMMATURE GRAN PERCENT AUTO 1 % (0-1); LYMPHOCYTES ABSOLUTE AUTO 2.15 K/mm3 (0.84-5.20); LYMPHOCYTES PERCENT AUTO 24 % (21-46); MONOCYTES ABSOLUTE AUTO 0.83 K/mm3 (0.16-1.47); MONOCYTES PERCENT AUTO 9 % (4-13); Mean Corpuscular HGB 26.9 pg (26.0-34.0); Mean Corpuscular HGB Conc 31.9 g/dL (31.5-36.5); Mean Corpuscular Volume 84 fL (80-100); Mean Platelet Volume 10.9 fL (9.1-12.4); NEUTROPHILS ABSOLUTE AUTO 5.85 K/mm3 (1.96-9.15); NEUTROPHILS PERCENT AUTO 65 % (41-73); Platelet Count 238 K/mm3 (150-400); RDW Coefficient Variation 16.4 % (11.7-14.2); RDW Standard Deviation 51.2 fL (35.1-46.3); Red Blood Cell Count 4.57 M/mm3 (4.30-5.90); White Blood Cell Count 8.96 K/mm3 (4.00-11.30)
[2024-01-24 03:12] LABS: Anion Gap 8 mmol/L (3-11); Blood Urea Nitrogen 20 mg/dL (8-24); Bun/Creatinine Ratio 18.9 (12.0-20.0); CO2, Blood 28 mmol/L (21-32); Calcium, Blood 8.3 mg/dL (8.5-10.1); Chloride, Blood 107 mmol/L (98-108); Creatinine, Blood 1.06 mg/dL (0.60-1.20); Glomerular Filtration Rate 83 (60-); Glucose, Blood 112 mg/dL (70-99); Phosphorus, Blood 3.6 mg/dL (2.5-4.9); Potassium, Blood 3.9 mmol/L (3.5-5.5); Sodium, Blood 139 mmol/L (136-145)
[2024-01-24 06:58] VITALS: BP 181/96
--- NOTE | 2024-01-24 07:31 | NUR ---
SHIFT SUMMARY NOC. PT POD 2 FOR L KNEE I&D AND HARDWARE REMOVAL. PT A/O X4. VOIDING URINE AND TOLERATING PO INTAKE. LANI WRAP AND IMMOBILIZER ON LLE C/D/I. PT MEDICATED FOR PAIN WITH OXY AND REPORTED RELIEF OF SX. PT ON HEPARIN DRIP FOR DVT OF LLE. PT RESTED WITH EYES CLOSED AND CALL LIGHT IN REACH.
[2024-01-24] MEDS ORDERED: Vancomycin HCL 2,000 MG in NS 500 ML IV ONE (08:45)
[2024-01-24 09:48] VITALS: BP 165/97
[2024-01-24 14:32] VITALS: BP 170/87
--- NOTE | 2024-01-24 18:23 | NUR ---
SUMMARY: PT IS POD2 L KNEE I&D. A/O, VSS. UP IN ROOM WITH SBA. THERAPY SIGNED OFF TODAY, PT MOVING WELL. IMMOBLIZER IN PLACE. DRESSING CHANGED TODAY BY DR. THOMAS. DRESSING WNL. PAIN SEEMS TO BE WELL MANAGED WITH NARCO 10. ANTIBOITICS INFUSED AND HEPARIN DRIP CONTINUES TO INFUSED, PHARMACY MANAGING. NO ACUTE CONCERNS.
[2024-01-24 20:10] VITALS: BP 165/96
[2024-01-24] MEDS ORDERED: Vancomycin HCL 1,250 MG in NS 250 ML IV SCH (21:00)
--- NOTE | 2024-01-25 03:55 | NUR ---
SHIFT SUMMARY PT IS A/O X4, POD3 FOR I&D OF L KNEE. ALSO HAS DVT IN LLE. HEP DRIP RUNNING PER EMAR. PT LOST SECONDARY IV ACCESS FOR IV ABX INTERMITTENTLY, VANCO GIVEN LATE AFTER CHECKING W/ PHARMACY ONCE IV ACCESS ESTABLISHED. IV VANCO AND ANCEF GIVEN. PAIN MANAGED W/ PO PAIN MEDS, PT ABLE TO REST. IMMOBILIZER IN PLACE. L PEDAL PULSE PALPABLE, NO INCREASE IN SWELLING NOTED. PT DENIES N/T TO ALL EXTREMITIES. VSS. PT VOIDING. CALLING APPROPRIATELY.
[2024-01-25 04:01] LABS: BASOPHILS ABSOLUTE AUTO 0.03 K/mm3 (0.00-0.23); BASOPHILS PERCENT AUTO 0 % (0-2); EOSINOPHILS ABSOLUTE AUTO 0.06 K/mm3 (0.00-0.68); EOSINOPHILS PERCENT AUTO 1 % (0-6); Hematocrit 43.2 % (37.0-53.0); Hemoglobin 13.5 g/dL (13.5-17.5); IMMATURE GRAN ABSOLUTE AUTO 0.03 K/mm3 (0.00-0.10); IMMATURE GRAN PERCENT AUTO 0 % (0-1); LYMPHOCYTES ABSOLUTE AUTO 2.22 K/mm3 (0.84-5.20); LYMPHOCYTES PERCENT AUTO 29 % (21-46); MONOCYTES ABSOLUTE AUTO 0.72 K/mm3 (0.16-1.47); MONOCYTES PERCENT AUTO 9 % (4-13); Mean Corpuscular HGB 26.6 pg (26.0-34.0); Mean Corpuscular HGB Conc 31.3 g/dL (31.5-36.5); Mean Corpuscular Volume 85 fL (80-100); Mean Platelet Volume 10.8 fL (9.1-12.4); NEUTROPHILS PERCENT AUTO 60 % (41-73); Platelet Count 246 K/mm3 (150-400); RDW Coefficient Variation 16.4 % (11.7-14.2); RDW Standard Deviation 50.7 fL (35.1-46.3); Red Blood Cell Count 5.08 M/mm3 (4.30-5.90); White Blood Cell Count 7.66 K/mm3 (4.00-11.30)
[2024-01-25 04:04] VITALS: BP 139/96
[2024-01-25 04:17] LABS: Albumin, Blood 3.2 g/dL (3.4-5.0); Anion Gap 7 mmol/L (3-11); Blood Urea Nitrogen 16 mg/dL (8-24); Bun/Creatinine Ratio 16.6 (12.0-20.0); CO2, Blood 28 mmol/L (21-32); Calcium, Blood 8.7 mg/dL (8.5-10.1); Chloride, Blood 105 mmol/L (98-108); Creatinine, Blood 0.96 mg/dL (0.60-1.20); Glomerular Filtration Rate 94 (60-); Glucose, Blood 110 mg/dL (70-99); Phosphorus, Blood 3.5 mg/dL (2.5-4.9); Potassium, Blood 4.1 mmol/L (3.5-5.5); Sodium, Blood 136 mmol/L (136-145)
[2024-01-25] MEDS ORDERED: Dose Adjust by Pharmacy XX STA ×2 (04:23→21:53)
[2024-01-25 07:17] VITALS: BP 150/97
[2024-01-25 16:01] VITALS: BP 163/96
--- NOTE | 2024-01-25 16:09 | NUR ---
TELEPHONE CALL TO HOSPITALIST DR SIMEON R/T ELEVATED BP 163/96; NO NEW ORDERS RECEIVED.
--- NOTE | 2024-01-25 16:13 | NUR ---
SHIFT SUMMARY PT A&OX4, VSS/RA, LEXY PO, VOIDING/URINAL, AMB INDEPENDENTLY W/ IMMOBILIZER ON -WBAT, PAIN MANAGED, IVF/ABX PER EMAR AND HEP DRIP TITRATED TO 17 PER PHARMACY. WILL REPORT TO ONCOMING NOC JA.
[2024-01-25 19:35] VITALS: BP 175/103
[2024-01-25 20:46] LABS: Vancomycin, Trough 20.9 ug/mL (5.0-10.0)
[2024-01-25 21:30] VITALS: BP 150/100
[2024-01-26 02:31] VITALS: BP 153/81
[2024-01-26 03:09] LABS: BASOPHILS ABSOLUTE AUTO 0.05 K/mm3 (0.00-0.23); BASOPHILS PERCENT AUTO 1 % (0-2); EOSINOPHILS ABSOLUTE AUTO 0.09 K/mm3 (0.00-0.68); EOSINOPHILS PERCENT AUTO 1 % (0-6); Hematocrit 42.9 % (37.0-53.0); Hemoglobin 13.7 g/dL (13.5-17.5); IMMATURE GRAN ABSOLUTE AUTO 0.02 K/mm3 (0.00-0.10); IMMATURE GRAN PERCENT AUTO 0 % (0-1); LYMPHOCYTES ABSOLUTE AUTO 2.09 K/mm3 (0.84-5.20); LYMPHOCYTES PERCENT AUTO 31 % (21-46); MONOCYTES ABSOLUTE AUTO 0.71 K/mm3 (0.16-1.47); MONOCYTES PERCENT AUTO 11 % (4-13); Mean Corpuscular HGB 27.1 pg (26.0-34.0); Mean Corpuscular HGB Conc 31.9 g/dL (31.5-36.5); Mean Corpuscular Volume 85 fL (80-100); Mean Platelet Volume 11.3 fL (9.1-12.4); NEUTROPHILS ABSOLUTE AUTO 3.77 K/mm3 (1.96-9.15); NEUTROPHILS PERCENT AUTO 56 % (41-73); Platelet Count 245 K/mm3 (150-400); RDW Coefficient Variation 16.2 % (11.7-14.2); RDW Standard Deviation 50.3 fL (35.1-46.3); Red Blood Cell Count 5.06 M/mm3 (4.30-5.90); White Blood Cell Count 6.73 K/mm3 (4.00-11.30)
[2024-01-26] MEDS ORDERED: Vancomycin HCL 1,500 MG in NS 250 ML IV SCH (04:00)
--- NOTE | 2024-01-26 04:54 | NUR ---
SHIFT SUMMARY NO ACUTE CHANGES TO REPORT OVERNIGHT. PT HAS RESTED T/O THE NIGHT. PT HAS BEEN INDEPENDENT IN THE ROOM. PT HAS BEEN TAKING HIS KNEE IMMOBILIZER OFF AND ON. PT EDUCATED ON THE IMPORTANCE OF WEARING IMMOBILZER. HEPARIN GTT INFUSING. PAIN MANAGED WITH MEDS PER EMAR. SURGICAL SITE WNL. PT HYPERTENSIVE. DAYSHIFT RN NOTIFIED PROVIDER YESTERDAY WITH NO NEW ORDERS. BED IN LOWEST POSITION, CALL LIGHT WITHIN REACH.
[2024-01-26 07:50] VITALS: BP 174/96
[2024-01-26] MEDS ORDERED: Apixaban 5 MG Tab PO SCH (10:00)
[2024-01-26 15:33] VITALS: BP 156/99
--- NOTE | 2024-01-26 16:59 | NUR ---
SHIFT SUMMARY POD4 L PATELLA I&D/REMOVAL OF HARDWARE, SUTURES CDI, DRESSING CHANGED, IMMOBILIZER ON. A&OX4, VSS/RA, LEXY PO, VOIDING/URINAL, AMB INDEPENDENTLY, WBAT PAIN MANAGED, IVF/ABX PER EMAR, ELIQUIS STARTED TODAY. WILL REPORT TO ONCOMING NOC AJ.
[2024-01-26 20:22] VITALS: BP 154/87
[2024-01-27 03:17] LABS: BASOPHILS ABSOLUTE AUTO 0.04 K/mm3 (0.00-0.23); BASOPHILS PERCENT AUTO 1 % (0-2); EOSINOPHILS ABSOLUTE AUTO 0.13 K/mm3 (0.00-0.68); EOSINOPHILS PERCENT AUTO 2 % (0-6); Hematocrit 45.3 % (37.0-53.0); Hemoglobin 14.3 g/dL (13.5-17.5); IMMATURE GRAN ABSOLUTE AUTO 0.02 K/mm3 (0.00-0.10); IMMATURE GRAN PERCENT AUTO 0 % (0-1); LYMPHOCYTES ABSOLUTE AUTO 1.96 K/mm3 (0.84-5.20); LYMPHOCYTES PERCENT AUTO 23 % (21-46); MONOCYTES PERCENT AUTO 11 % (4-13); Mean Corpuscular HGB 27.1 pg (26.0-34.0); Mean Corpuscular HGB Conc 31.6 g/dL (31.5-36.5); Mean Corpuscular Volume 86 fL (80-100); Mean Platelet Volume 11.2 fL (9.1-12.4); NEUTROPHILS ABSOLUTE AUTO 5.43 K/mm3 (1.96-9.15); NEUTROPHILS PERCENT AUTO 64 % (41-73); Platelet Count 263 K/mm3 (150-400); RDW Coefficient Variation 16.2 % (11.7-14.2); RDW Standard Deviation 50.4 fL (35.1-46.3); Red Blood Cell Count 5.28 M/mm3 (4.30-5.90); White Blood Cell Count 8.48 K/mm3 (4.00-11.30)
[2024-01-27 03:33] LABS: Anion Gap 7 mmol/L (3-11); Blood Urea Nitrogen 27 mg/dL (8-24); Bun/Creatinine Ratio 24.8 (12.0-20.0); CO2, Blood 30 mmol/L (21-32); Chloride, Blood 104 mmol/L (98-108); Creatinine, Blood 1.09 mg/dL (0.60-1.20); Glomerular Filtration Rate 81 (60-); Glucose, Blood 105 mg/dL (70-99); Potassium, Blood 4.7 mmol/L (3.5-5.5); Sodium, Blood 136 mmol/L (136-145); Vancomycin, Trough 10.3 ug/mL (5.0-10.0)
[2024-01-27 04:27] VITALS: BP 156/90
[2024-01-27 07:42] VITALS: BP 167/95
--- NOTE | 2024-01-27 08:13 | NUR ---
summary pt reported slept well. no acute changes.
[2024-01-27 14:48] VITALS: BP 137/84
--- NOTE | 2024-01-27 14:58 | NUR ---
ORTHO: ORTHO IN TO SEE PATIENT AND CHECK WOUND. PT TREATMENT PLAN DISCUSSED. PT CONT TO REFUSE PICC LINE PLACEMENT AND WOULD PREFER ORAL ABX REGIMINE WHEN DISCHARGED. HOSPITALIST NOTIFIED AND STATES HE WILL CONSULT INFECTIOUS DISEASE FOR RECOMMENDATIONS. PT WOUND CLEANED AND REDRESSED PER DOCTOR ORDERS.
--- NOTE | 2024-01-27 18:36 | NUR ---
PT HAS BEEN STABLE POST OP DAY 5 FOR I+D OF LEFT KNEE. PT MRSA POSITIVE, AWAITING PATHOLOGY RESULTS. PT DRESSING CHANGED TODAY, WOUND HEALING WNL. IMMOBILIZER FOR ACTIVITY BUT PT MAY HAVE OFF IN BED PER DR BOLANOS. PT CONT TO REFUSE PICC LINE PLACEMENT. HOSPITALIST CONSULTED ID FOR RECOMMENDATIONS. CONT IV ABX AT THIS TIME. VANCO TROUGH DUE 7/10. AM LABS TO BE REPEATED. PRN ROXICODONE REPORTED EFFECTIVE FOR PAIN. PT TOLERATING DIET. VOIDING WELL WITH URINAL. POSSIBLE DC TOMORROW ONCE ABX REGIMINE DECIDED.
[2024-01-27 19:20] VITALS: BP 168/80
[2024-01-28 02:53] VITALS: BP 168/95
[2024-01-28 04:59] LABS: BASOPHILS ABSOLUTE AUTO 0.03 K/mm3 (0.00-0.23); BASOPHILS PERCENT AUTO 0 % (0-2); EOSINOPHILS ABSOLUTE AUTO 0.12 K/mm3 (0.00-0.68); EOSINOPHILS PERCENT AUTO 2 % (0-6); Hematocrit 43.7 % (37.0-53.0); Hemoglobin 14.1 g/dL (13.5-17.5); IMMATURE GRAN ABSOLUTE AUTO 0.02 K/mm3 (0.00-0.10); IMMATURE GRAN PERCENT AUTO 0 % (0-1); LYMPHOCYTES ABSOLUTE AUTO 1.99 K/mm3 (0.84-5.20); LYMPHOCYTES PERCENT AUTO 26 % (21-46); MONOCYTES ABSOLUTE AUTO 0.91 K/mm3 (0.16-1.47); MONOCYTES PERCENT AUTO 12 % (4-13); Mean Corpuscular HGB 27.4 pg (26.0-34.0); Mean Corpuscular HGB Conc 32.3 g/dL (31.5-36.5); Mean Corpuscular Volume 85 fL (80-100); Mean Platelet Volume 11.3 fL (9.1-12.4); NEUTROPHILS ABSOLUTE AUTO 4.62 K/mm3 (1.96-9.15); NEUTROPHILS PERCENT AUTO 60 % (41-73); Platelet Count 243 K/mm3 (150-400); RDW Coefficient Variation 16.2 % (11.7-14.2); RDW Standard Deviation 50.5 fL (35.1-46.3); Red Blood Cell Count 5.15 M/mm3 (4.30-5.90); White Blood Cell Count 7.69 K/mm3 (4.00-11.30)
--- NOTE | 2024-01-28 05:20 | NUR ---
SUMMARY- PT PAIN MANAGED WELL. PT DRESSING CHANGED BY DAYSHIFT.RN. GUERRERO C/D/I. PT HAS BEEN RESTING THROUGHOUT SHIFT. PT VOIDING WELL. PT HAS NO ISSSUES. CALL LIGHT IN REACH.
[2024-01-28 06:00] LABS: Bun/Creatinine Ratio 22.3 (12.0-20.0); Calcium, Blood 8.8 mg/dL (8.5-10.1); Creatinine, Blood 1.12 mg/dL (0.60-1.20); Potassium, Blood 3.8 mmol/L (3.5-5.5)
[2024-01-28 07:23] VITALS: BP 160/80
[2024-01-28] MEDS ORDERED: DAPTOmycin 500 MG in NS 50 ML IV SCH (14:30)
[2024-01-28 19:35] VITALS: BP 153/90
--- NOTE | 2024-01-29 04:25 | NUR ---
SUMMARY- NO NEW ISSUES NOTED. PT PAIN HAS BEEN MANAGED WELL THIS SHIFT. PT HAS BEEN EATING AND DRINKING. PT VOIDING WELLL. CALL LIGHT IN REACH.
[2024-01-29 04:56] VITALS: BP 150/96
[2024-01-29 05:27] LABS: Calcium, Blood 8.7 mg/dL (8.5-10.1); Creatinine, Blood 0.91 mg/dL (0.60-1.20); Potassium, Blood 3.8 mmol/L (3.5-5.5)
[2024-01-29 07:05] VITALS: BP 136/81
--- NOTE | 2024-01-29 14:56 | NUR ---
L KNEE DRESSING CHANGED. INCISION CLEANSED WITH H2O2 PER ORDER AND AQUACEL PLACED.
[2024-01-29] MEDS ORDERED: ELIQUIS5 M2 PO (15:08)
[2024-01-29] MEDS ORDERED: CUBICIN RF500 M1 IV (15:09)
[2024-01-29] MEDS ORDERED: OXYC10TA19 PO (15:10)
--- NOTE | 2024-01-29 15:50 | NUR ---
DISCHARGE PT PROVIDED WITH WRITTEN AND VERBAL DISCHARGE INSTRUCTIONS, HE REPORTED UNDERSTANDING. CLEAN DRESSINGS PROVIDED FOR DRESSING CHANGES. PT ASSISTED OUT IN W/C AT 1549.
== END 2024-01-29 15:49 | disposition home or self-care (01) | DRG 478 ==
LOC: ER 18:07 → SURS 18:08
PROVIDERS: Emergency Medicine; Family Medicine; Orthopaedic Surgery Sports Medicine; ADMIT Student in an Organized Health Care Education/Training Program
PROC: 02HV33Z Insertion of Infusion Device into Superior Vena Cava, Percutaneous Approach (ICD-10-PCS; 2024-01-21)
PROC: 0QBF0ZZ Excision of Left Patella, Open Approach (ICD-10-PCS; 2024-01-22)
PROC: 0Q9 Lower Bones, Drainage (ICD-10-PCS; principal; 2024-01-22 15:30)
DX: T84.54XA Infection and inflammatory reaction due to internal left knee prosthesis, initial encounter (principal); E87.1 Hypo-osmolality and hyponatremia; I82.432 Acute embolism and thrombosis of left popliteal vein; L03.116 Cellulitis of left lower limb; I82.442 Acute embolism and thrombosis of left tibial vein; Y83.8 Other surgical procedures as the cause of abnormal reaction of the patient, or of later complication, without mention of misadventure at the time of the procedure; D64.9 Anemia, unspecified; I10 Essential (primary) hypertension; M54.50 Low back pain, unspecified; G89.29 Other chronic pain; Z98.890 Other specified postprocedural states; Z87.891 Personal history of nicotine dependence; F12.90 Cannabis use, unspecified, uncomplicated; Z79.899 Other long term (current) drug therapy; Z86.14 Personal history of Methicillin resistant Staphylococcus aureus infection; Z96.643 Presence of artificial hip joint, bilateral
CPT/HCPCS: 36415; 36569; 73701; 80048; 80053; 80069; 80202; 82947; 83605; 83690; 85025; 85520; 85610; 85730; 87040; 87070; 87075; 87077; 87147; 87186; 87205; 88305; 88311; 96365; 96366; 96375; 97110; 97161; 99284-25; A9270; C1751; G0378; J0690; J0878; J1100; J1644; J1885; J2405; J2704; J3010; J3370; J7040; J7050; J7120; Q9967

== ENCOUNTER → 2024-01-30 | Outpatient (CLI) | payer OTHER ==
[~2024-01-30] MED LIST changes: +ELIQUIS5 M2 PO; +OXYC10TA19 PO
== END | disposition home or self-care (01) ==
LOC: LAB SHORT 17:00 → LAB 17:00
DX: T84.54XA Infection and inflammatory reaction due to internal left knee prosthesis, initial encounter (principal)
CPT/HCPCS: 82550

== ENCOUNTER → 2024-02-04 | Outpatient (CLI) | payer OTHER ==
[2024-02-04 16:22] LABS: BASOPHILS ABSOLUTE AUTO 0.05 K/mm3 (0.00-0.23); BASOPHILS PERCENT AUTO 1 % (0-2); EOSINOPHILS ABSOLUTE AUTO 0.09 K/mm3 (0.00-0.68); EOSINOPHILS PERCENT AUTO 1 % (0-6); Hematocrit 36.6 % (37.0-53.0); Hemoglobin 11.4 g/dL (13.5-17.5); IMMATURE GRAN ABSOLUTE AUTO 0.02 K/mm3 (0.00-0.10); IMMATURE GRAN PERCENT AUTO 0 % (0-1); LYMPHOCYTES ABSOLUTE AUTO 1.77 K/mm3 (0.84-5.20); LYMPHOCYTES PERCENT AUTO 21 % (21-46); MONOCYTES ABSOLUTE AUTO 0.92 K/mm3 (0.16-1.47); MONOCYTES PERCENT AUTO 11 % (4-13); Mean Corpuscular HGB 26.9 pg (26.0-34.0); Mean Corpuscular HGB Conc 31.1 g/dL (31.5-36.5); Mean Corpuscular Volume 86 fL (80-100); Mean Platelet Volume 12.1 fL (9.1-12.4); NEUTROPHILS ABSOLUTE AUTO 5.53 K/mm3 (1.96-9.15); NEUTROPHILS PERCENT AUTO 66 % (41-73); Platelet Count 220 K/mm3 (150-400); RDW Standard Deviation 50.8 fL (35.1-46.3); Red Blood Cell Count 4.24 M/mm3 (4.30-5.90); White Blood Cell Count 8.38 K/mm3 (4.00-11.30)
[2024-02-04 16:52] LABS: Albumin, Blood 3.4 g/dL (3.4-5.0); Albumin/Globulin Ratio 0.8 (0.8-1.8); Bilirubin, Total 0.5 mg/dL (0.1-1.0); Bun/Creatinine Ratio 21.1 (12.0-20.0); Creatinine, Blood 0.95 mg/dL (0.60-1.20); Globulin, Blood 4.3 g/dL (2.2-4.0); Potassium, Blood 3.5 mmol/L (3.5-5.5); Total Protein, Blood 7.7 g/dL (6.4-8.2)
== END ==
LOC: LAB SHORT 15:01 → LAB 15:01
PROVIDERS: Family Medicine
DX: T84.54XA Infection and inflammatory reaction due to internal left knee prosthesis, initial encounter (principal); Z79.899 Other long term (current) drug therapy
CPT/HCPCS: 80053; 82550; 85025

== ENCOUNTER → 2024-02-11 | Outpatient (CLI) | payer OTHER ==
[2024-02-11 15:42] LABS: Creatinine, Blood 1.1 mg/dL (0.60-1.20)
== END | disposition home or self-care (01) ==
LOC: LAB 13:07 → LAB SHORT 13:07
PROVIDERS: Family Medicine
DX: T84.54XA Infection and inflammatory reaction due to internal left knee prosthesis, initial encounter (principal); Z79.899 Other long term (current) drug therapy
CPT/HCPCS: 82550; 82565

== ENCOUNTER → 2024-02-19 | Outpatient (CLI) | payer OTHER ==
[2024-02-19 14:09] LABS: BASOPHILS ABSOLUTE AUTO 0.04 K/mm3 (0.00-0.23); BASOPHILS PERCENT AUTO 1 % (0-2); EOSINOPHILS ABSOLUTE AUTO 0.06 K/mm3 (0.00-0.68); EOSINOPHILS PERCENT AUTO 1 % (0-6); Hematocrit 38.3 % (37.0-53.0); Hemoglobin 12.1 g/dL (13.5-17.5); IMMATURE GRAN ABSOLUTE AUTO 0.02 K/mm3 (0.00-0.10); IMMATURE GRAN PERCENT AUTO 0 % (0-1); LYMPHOCYTES ABSOLUTE AUTO 1.27 K/mm3 (0.84-5.20); LYMPHOCYTES PERCENT AUTO 25 % (21-46); MONOCYTES ABSOLUTE AUTO 0.51 K/mm3 (0.16-1.47); MONOCYTES PERCENT AUTO 10 % (4-13); Mean Corpuscular HGB 27.5 pg (26.0-34.0); Mean Corpuscular HGB Conc 31.6 g/dL (31.5-36.5); Mean Corpuscular Volume 87 fL (80-100); Mean Platelet Volume 11.9 fL (9.1-12.4); NEUTROPHILS ABSOLUTE AUTO 3.15 K/mm3 (1.96-9.15); NEUTROPHILS PERCENT AUTO 62 % (41-73); Platelet Count 225 K/mm3 (150-400); RDW Coefficient Variation 15.7 % (11.7-14.2); RDW Standard Deviation 50.4 fL (35.1-46.3); White Blood Cell Count 5.05 K/mm3 (4.00-11.30)
[2024-02-19 14:23] LABS: Albumin, Blood 3.4 g/dL (3.4-5.0); Albumin/Globulin Ratio 0.8 (0.8-1.8); Bilirubin, Total 0.5 mg/dL (0.1-1.0); Calcium, Blood 8.7 mg/dL (8.5-10.1); Creatinine, Blood 1.06 mg/dL (0.60-1.20); Globulin, Blood 4.2 g/dL (2.2-4.0); Potassium, Blood 3.8 mmol/L (3.5-5.5); Total Protein, Blood 7.6 g/dL (6.4-8.2)
== END | disposition home or self-care (01) ==
LOC: LAB SHORT 13:19
PROVIDERS: Family Medicine
DX: T84.54XA Infection and inflammatory reaction due to internal left knee prosthesis, initial encounter (principal); Z79.899 Other long term (current) drug therapy
CPT/HCPCS: 80053; 82550; 85025

== ENCOUNTER 2024-03-12 03:02 | Day surgery (SDC) | payer OTHER ==
[2024-03-12 11:26] VITALS: BP 177/102
== END 2024-03-12 11:40 | disposition home or self-care (01) ==
LOC: ATC 03:02
DX: Z45.2 Encounter for adjustment and management of vascular access device (principal); A49.02 Methicillin resistant Staphylococcus aureus infection, unspecified site
CPT/HCPCS: 99212

== ENCOUNTER → 2024-09-04 | Outpatient (CLI) | payer OTHER ==
[2024-09-04 15:42] LABS: BASOPHILS ABSOLUTE AUTO 0.03 K/mm3 (0.00-0.23); BASOPHILS PERCENT AUTO 0 % (0-2); EOSINOPHILS ABSOLUTE AUTO 0.03 K/mm3 (0.00-0.68); EOSINOPHILS PERCENT AUTO 0 % (0-6); Hematocrit 42.9 % (37.0-53.0); Hemoglobin 14.1 g/dL (13.5-17.5); IMMATURE GRAN ABSOLUTE AUTO 0.02 K/mm3 (0.00-0.10); IMMATURE GRAN PERCENT AUTO 0 % (0-1); LYMPHOCYTES ABSOLUTE AUTO 1.71 K/mm3 (0.84-5.20); LYMPHOCYTES PERCENT AUTO 19 % (21-46); MONOCYTES ABSOLUTE AUTO 0.67 K/mm3 (0.16-1.47); MONOCYTES PERCENT AUTO 7 % (4-13); Mean Corpuscular HGB 27.9 pg (26.0-34.0); Mean Corpuscular HGB Conc 32.9 g/dL (31.5-36.5); Mean Corpuscular Volume 85 fL (80-100); Mean Platelet Volume 11.9 fL (9.1-12.4); NEUTROPHILS ABSOLUTE AUTO 6.56 K/mm3 (1.96-9.15); NEUTROPHILS PERCENT AUTO 73 % (41-73); Platelet Count 237 K/mm3 (150-400); RDW Coefficient Variation 14.4 % (11.7-14.2); RDW Standard Deviation 44.2 fL (35.1-46.3); Red Blood Cell Count 5.06 M/mm3 (4.30-5.90); White Blood Cell Count 9.02 K/mm3 (4.00-11.30)
[2024-09-05 00:08] LABS: Albumin, Blood 3.7 g/dL (3.4-5.0); Albumin/Globulin Ratio 0.9 (0.8-1.8); Bilirubin, Total 0.5 mg/dL (0.1-1.0); Bun/Creatinine Ratio 29.2 (12.0-20.0); Calcium, Blood 9.4 mg/dL (8.5-10.1); Creatinine, Blood 0.96 mg/dL (0.60-1.20); Globulin, Blood 4.2 g/dL (2.2-4.0); Potassium, Blood 3.3 mmol/L (3.5-5.5); Total Protein, Blood 7.9 g/dL (6.4-8.2)
== END ==
LOC: LAB 14:44 → LAB SHORT 14:44
PROVIDERS: Nurse Practitioner Family
DX: I10 Essential (primary) hypertension (principal)
CPT/HCPCS: 80053; 85025

== ENCOUNTER 2025-02-11 12:34 | Day surgery (SDC) | payer OTHER ==
[~2025-02-11] VITALS: Ht 172.7 cm; Wt 87.3 kg
[~2025-02-11 12:34] MED LIST changes: +Lidocaine HCl 2% 10 ML SDA ONE
[2025-02-11] MEDS ORDERED: CeFAZolin Sodium 2,000 MG VIAL ONE (12:52)
[2025-02-11] MEDS ORDERED: Midazolam HCl 1MG / ML 2ML Vial ONE (13:36)
[2025-02-11] MEDS ORDERED: FentaNYL Citrate 50 MCG/ML 2 ML Injection ONE (13:36)
[2025-02-11] MEDS ORDERED: Ropivacaine 0.5% HCL/PF 5 MG/ML 30ML Vial ONE (13:36)
--- NOTE | 2025-02-11 14:05 | NUR ---
02/11/25 1405 Eileen Barrett LEFT AXILLARY BLOCK DONE BY KIRSTIE DELA CRUZ CRNA OF LEFT ARM TIME OUT AT 1350 BLOCK START AT 1355. BLOCK END AT 1400. PT TOLERATED WELL AND WAS ON CONTINUOUS PULSE OX MONITORING.
[2025-02-11] MEDS ORDERED: Ondansetron HCl 2 MG / ML 2ML Vial ONE (14:15)
[2025-02-11] MEDS ORDERED: Dexamethasone Sod Phos 10 MG/ML 1ML VIAL ONE ×2 (14:15→14:16)
[2025-02-11 15:29] VITALS: BP 164/89
== END 2025-02-11 16:10 | disposition home or self-care (01) ==
LOC: ORSCSDS 12:34
PROVIDERS: Orthopaedic Surgery
PROC: 0RUT0JZ Supplement Left Carpometacarpal Joint with Synthetic Substitute, Open Approach (ICD-10-PCS; principal; 2025-02-11 14:15)
DX: M18.12 Unilateral primary osteoarthritis of first carpometacarpal joint, left hand (principal); I10 Essential (primary) hypertension; Z87.891 Personal history of nicotine dependence; Z79.899 Other long term (current) drug therapy
CPT/HCPCS: C1713; J0690; J1100; J2003; J2250; J2405; J2704; J2795; J3010; J7120